=== PATIENT | male | born 1950 | race African-American/Black ===

== ENCOUNTER 2017-01-26 18:17 | Observation (INO) ==
[2017-01-26 19:41] LABS: Bilirubin,Urine Negative (Negative); Blood,Urine Trace-lysed (Negative); Clarity,Urine Clear (Clear); Color,Urine Yellow (Yellow); Glucose,Urine (UA) 500 mg/dL (Normal); Ketones,Urine Negative (Negative); Leukocyte Esterase,Urine Negative (Negative); Nitrite,Urine Negative (Negative); Protein,Urine 100 mg/dL (Neg-Trace); Urobilinogen,Urine Normal (Normal)
[2017-01-26 19:56] LABS: Bacteria,Urine None Seen per hpf (None-Few); Hyaline Casts,Urine None Seen per lpf (None-Few); RBC,Urine 0-3 per hpf (0-3); Squamous Epithelial Cell,Urine Few per lpf (None-Few)
[2017-01-26 20:17] LABS: Basophils % 0.3 %; Eosinophils # 0.1 K/mcL (0.0-0.6); Eosinophils % 1.4 %; Hematocrit 43.9 % (37.5-50.1); Hemoglobin 15.1 g/dL (12.9-16.9); Immature Granulocytes % 0.3 % (0-4); Lymphocytes % 22.9 %; Mean Corpuscular HGB Conc 34.4 g/dL (31.6-35.5); Mean Corpuscular Hemoglobin 28.9 pg (28.0-33.3); Mean Corpuscular Volume 84.1 fL (83.0-100.0); Mean Platelet Volume 9.9 fL (9.4-12.4); Monocytes # 0.6 K/mcL (0.0-1.3); Monocytes % 6.3 %; Platelet Count 245 K/mcL (140-400); Red Blood Count 5.22 M/mcL (4.19-5.50); Red Cell Distribution Width 12.3 % (11.5-14.5); Segmented Neutrophils % 68.8 %
[2017-01-26] MEDS ORDERED: 0.9 % Sodium Chloride 1,000 ML IVC ONE (20:18)
[2017-01-26] MEDS ORDERED: Ipratropium/Albuterol Neb 3 ML IH ONE (20:18)
[2017-01-26 20:28] LABS: BUN/Creatinine Ratio 11 (6-26); Blood Urea Nitrogen 13 mg/dL (8-26); Calcium 10.1 mg/dL (8.6-10.8); Carbon Dioxide 27 mEq/L (19-29); Chloride 99 mEq/L (98-109); Glucose 395 mg/dL (70-99); Osmolality,Calculated 299 (280-300); Potassium 3.9 mEq/L (3.5-4.5); Sodium 136 mEq/L (136-145); eGFR For African Americans > 60 (> 60); eGFR For Non-African Americans 60 (> 60)
[2017-01-26 21:07] LABS: Beta-Hydroxybutyric Acid 0.23 mmol/L (0.02-0.27)
[2017-01-26 21:14] LABS: Alanine Aminotransferase 24 Units/L (0-55); Albumin 3.8 g/dL (3.5-5.0); Albumin/Globulin Ratio 0.9 (1.1-2.2); Alkaline Phosphatase 112 Units/L (38-126); Aspartate Amino Transferase 14 Units/L (5-34); Bilirubin,Direct 0.1 mg/dL (0.0-0.5); Bilirubin,Indirect 0.2 mg/dL (0.0-1.2); Bilirubin,Total 0.3 mg/dL (0.2-1.2); Globulin 4.4 g/dL (2.4-3.5); Lipase 67 Units/L (8-78); Total Protein 8.2 g/dL (6.0-8.3)
--- NOTE | 2017-01-26 21:29 | Emergency Department Note ---
Disposition Clinical Impression: Hyperglycemia, Bronchitis, Elevated troponin Chest pain Qualifiers: Chest pain type: unspecified Qualified Code(s): R07.9 - Chest pain, unspecified Disposition: Admitted As Inpatient Condition: Good Time of Disposition: 22:08 General Adult HPI - General Chief complaint: ED Upper Respiratory Infection Stated complaint: JAYNA Time Seen by Provider: 01/26/17 19:34 Source: patient Mode of arrival: ambulatory Limitations: no limitations Nursing Notes Reviewed: Yes Vital Signs Reviewed: Yes - History of Present Illness HPI Narrative: Patient presents to the ED with the chief complaint of cough and hyperglycemia. Patient reports he has been battling a nonproductive cough for the last 2 weeks. He has also been having subjective fevers waking up at night profusely sweating. States that he is having some sharp chest pain that is retrosternal, intermittent, worse when coughing. Does have a history of one stent and last cardiac evaluation was several years ago. Also complaining of some achy epigastric abdominal pain, nausea, no vomiting. Does have a history of diabetes for the last 25 years with no history of DKA. States his blood sugars are always very well controlled. Reports that the last 3 days he has been unable to control his blood sugars and they have been in the 400s despite giving himself his normal amounts of insulin. He denies any difficulty urinating. Denies any pain or swelling in his legs. Pain Scale: 8 - Related Data Home Medications Medication Instructions Recorded Confirmed Allopurinol [Zyloprim] 300 mg PO DAILY 01/31/15 01/26/17 Amlodipine [Amlodipine Besylate] 10 mg PO DAILY 01/31/15 01/26/17 Aspirin 81 mg PO DAILY 01/31/15 01/26/17 Atorvastatin [Lipitor] 40 mg PO HS 01/31/15 01/26/17 Duloxetine [Cymbalta] 30 mg PO BID 01/31/15 01/26/17 Gabapentin [Neurontin] 300 mg PO TID 01/31/15 01/26/17 Insulin Glargine,Hum.rec.anlog 42 unit SQ HS 01/31/15 01/26/17 [Lantus Solostar] Isosorbide MONOnitrate (24 HR) 30 mg PO DAILY 01/31/15 01/26/17 [Imdur] Insulin ASPART [Novolog Flexpen] 0 unit SQ TIDWM 01/26/17 01/26/17 Lisinopril [Zestril] 40 mg PO DAILY 01/26/17 01/26/17 Metformin HCl [Glucophage Xr] 750 - 1,500 mg PO QPM 01/26/17 01/26/17 Metoprolol [Lopressor] 50 mg PO BID 01/26/17 01/26/17 Multivitamin [One Daily Essential] 1 each PO DAILY 01/26/17 01/26/17 OxyCODONE/APAP 5/325 [Percocet 1 tab PO QID PRN 01/26/17 01/26/17 5/325 MG] cloNIDine HCl [Clonidine HCl] 0.3 mg PO BID 01/26/17 01/26/17 Allergies Allergy/AdvReac Type Severity Reaction Status Date / Time morphine AdvReac Rash Verified 01/26/17 20:32 All systems ED: reviewed and negative except as stated. Constitutional: Reports: fever, chills Cardiovascular: Reports: chest pain Respiratory: Reports: cough, dyspnea Gastrointestinal: Reports: abdominal pain, nausea, vomiting Genitourinary: Denies: dysuria Musculoskeletal: Denies: back pain Neurological: Denies: headache Past Medical History - Past Medical History Attestation: Yes The following information was validated with the patient. Source: patient Medical history: Reports: asthma, diabetes, hyperlipidemia, hypertension Psychiatric history: Reports: no psych history - Social History Smoking Status: Never smoker Smokeless Tobacco Status: Yes Alcohol use: Reports: none Drug use: Reports: none Physical Exam - General Limitations: no limitations General appearance: alert, in no apparent distress - Head Head exam: atraumatic, normocephalic, normal inspection - Eye Eye exam: Present: normal appearance, PERRL, EOMI - ENT ENT exam: normal exam, normal oropharynx, mucous membranes moist - Neck Neck exam: Present: normal inspection, full ROM, trachea midline - Chest Chest inspection: Present: normal inspection, symmetric chest wall rise - Respiratory Respiratory exam: Present: wheezes (Left lung, does have history of asthma), other. Absent: normal lung sounds bilaterally - Cardiovascular Cardiovascular exam: Present: normal rhythm, tachycardia, normal heart sounds. Absent: regular rate - Abdominal Exam Abdominal exam: Present: soft, Non-Tender. Absent: tenderness, distention, guarding, rebound, rigidity - Extremities Exam Extremities exam: Present: normal inspection, full ROM. Absent: tenderness, pedal edema - Neurological Exam Neurological exam: Present: alert, oriented X3 - Psychiatric Psychiatric exam: Present: normal affect, normal mood - Skin Skin exam: Present: warm, dry, intact, normal color Course Course Narrative: 66-year-old male with history of coronary artery disease and diabetes presenting with chest pain, abdominal pain, nausea and cough. Will workup and likely admit. - Reevaluation(s) Reevaluation #1: Patient accepted for the hospitalist service for admission. He just the d- dimer is normal. Troponin is slightly elevated. EKG did not show any acute ischemic changes. We will admit for further workup and evaluation of this chest pain. Vital Signs Temperature 98.9 F 01/26/17 18:33 Pulse Rate 124 01/26/17 18:33 Respiratory Rate 22 01/26/17 18:33 Blood Pressure 173/131 01/26/17 18:33 O2 Sat by Pulse Oximetry 96 01/26/17 18:33 Temperature 98.2 F 01/26/17 23:38 Pulse Rate 95 01/26/17 23:38 Respiratory Rate 16 01/26/17 23:38 Blood Pressure 189/93 01/26/17 23:38 O2 Sat by Pulse Oximetry 96 01/26/17 23:38 Oxygen Delivery Oxygen Delivery Room Air Medical Decision Making - Medical Records Medical records reviewed: Yes I reviewed the patient's medical records. - Lab Data Lab results reviewed: Yes I reviewed the patient's lab results. Result diagrams: 01/26/17 20:00 01/26/17 20:00 Lab Results 01/26/17 01/26/17 01/26/17 Range/Units 18:25 18:30 20:00 WBC 8.7 (4.3-11.1) K/mcL RBC 5.22 (4.19-5.50) M/mcL Hgb 15.1 (12.9-16.9) g/dL Hct 43.9 (37.5-50.1) % MCV 84.1 (83.0-100.0) fL MCH 28.9 (28.0-33.3) pg MCHC 34.4 (31.6-35.5) g/dL RDW 12.3 (11.5-14.5) % Plt Count 245 (140-400) K/mcL MPV 9.9 (9.4-12.4) fL Immature Gran % 0.3 (0-4) % Seg Neutrophils % 68.8 % Lymphocytes % 22.9 % Monocytes % 6.3 % Eosinophils % 1.4 % Basophils % 0.3 % Neutrophils # 6.0 (1.6-8.9) K/mcL Lymphocytes # 2.0 (0.6-4.6) K/mcL Monocytes # 0.6 (0.0-1.3) K/mcL Eosinophils # 0.1 (0.0-0.6) K/mcL Basophils # 0.0 (0.0-0.2) K/mcL D-Dimer (0-500) ng/mLFEU Sodium (136-145) mEq/L Potassium (3.5-4.5) mEq/L Chloride (98-109) mEq/L Carbon Dioxide (19-29) mEq/L BUN (8-26) mg/dL Creatinine (0.72-1.25) mg/dL Est GFR ( Amer) (> 60) Est GFR (Non-Af Amer) (> 60) BUN/Creatinine Ratio (6-26) Glucose (70-99) mg/dL POC Glucose 373 H (58-89) Calculated Osmolality (280-300) Calcium (8.6-10.8) mg/dL Total Bilirubin (0.2-1.2) mg/dL Direct Bilirubin (0.0-0.5) mg/dL Indirect Bilirubin (0.0-1.2) mg/dL AST (5-34) Units/L ALT (0-55) Units/L Alkaline Phosphatase (38-126) Units/L Troponin I (0-0.03) ng/mL B-Natriuretic Peptide (0-100) pg/mL Serum Total Protein (6.0-8.3) g/dL Albumin (3.5-5.0) g/dL Globulin (2.4-3.5) g/dL Albumin/Globulin Ratio (1.1-2.2) Lipase (8-78) Units/L Beta-Hydroxybutyric Acd (0.02-0.27) mmol/L Ur Specimen Adequacy See below A Urine Color Yellow (Yellow) Urine Clarity Clear (Clear) Urine pH 5.0 (5.0-8.0) pH Units Ur Specific [place] 1.020 (1.010-1.025) Urine Protein 100 H (Neg-Trace) mg/dL Urine Glucose (UA) 500 H (Normal) mg/dL Urine Ketones Negative (Negative) mg/dL Urine Blood Trace-lysed H (Negative) Urine Nitrite Negative (Negative) Urine Bilirubin Negative (Negative) Urine Urobilinogen Normal (Normal) mg/dL Ur Leukocyte Esterase Negative (Negative) Urine Microscopic RBC 0-3 (0-3) per hpf Urine Microscopic WBC 3-5 H (0-3) per hpf Ur Squamous Epith Cells Few (None-Few) per lpf Urine Bacteria None Seen (None-Few) per hpf Hyaline Casts None Seen (None-Few) per lpf 01/26/17 01/26/17 01/26/17 Range/Units 20:00 20:00 20:00 WBC (4.3-11.1) K/mcL RBC (4.19-5.50) M/mcL Hgb (12.9-16.9) g/dL Hct (37.5-50.1) % MCV (83.0-100.0) fL MCH (28.0-33.3) pg MCHC (31.6-35.5) g/dL RDW (11.5-14.5) % Plt Count (140-400) K/mcL MPV (9.4-12.4) fL Immature Gran % (0-4) % Seg Neutrophils % % Lymphocytes % % Monocytes % % Eosinophils % % Basophils % % Neutrophils # (1.6-8.9) K/mcL Lymphocytes # (0.6-4.6) K/mcL Monocytes # (0.0-1.3) K/mcL Eosinophils # (0.0-0.6) K/mcL Basophils # (0.0-0.2) K/mcL D-Dimer (0-500) ng/mLFEU Sodium 136 (136-145) mEq/L Potassium 3.9 (3.5-4.5) mEq/L Chloride 99 (98-109) mEq/L Carbon Dioxide 27 (19-29) mEq/L BUN 13 (8-26) mg/dL Creatinine 1.22 (0.72-1.25) mg/dL Est GFR ( Amer) > 60 (> 60) Est GFR (Non-Af Amer) 60 (> 60) BUN/Creatinine Ratio 11 (6-26) Glucose 395 H (70-99) mg/dL POC Glucose (58-89) Calculated Osmolality 299 (280-300) Calcium 10.1 (8.6-10.8) mg/dL Total Bilirubin 0.3 (0.2-1.2) mg/dL Direct Bilirubin 0.1 (0.0-0.5) mg/dL Indirect Bilirubin 0.2 (0.0-1.2) mg/dL AST 14 (5-34) Units/L ALT 24 (0-55) Units/L Alkaline Phosphatase 112 (38-126) Units/L Troponin I 0.05 H* (0-0.03) ng/mL B-Natriuretic Peptide 71 (0-100) pg/mL Serum Total Protein 8.2 (6.0-8.3) g/dL Albumin 3.8 (3.5-5.0) g/dL Globulin 4.4 H (2.4-3.5) g/dL Albumin/Globulin Ratio 0.9 L (1.1-2.2) Lipase 67 (8-78) Units/L Beta-Hydroxybutyric Acd 0.23 (0.02-0.27) mmol/L Ur Specimen Adequacy Urine Color (Yellow) Urine Clarity (Clear) Urine pH (5.0-8.0) pH Units Ur Specific [place] (1.010-1.025) Urine Protein (Neg-Trace) mg/dL Urine Glucose (UA) (Normal) mg/dL Urine Ketones (Negative) mg/dL Urine Blood (Negative) Urine Nitrite (Negative) Urine Bilirubin (Negative) Urine Urobilinogen (Normal) mg/dL Ur Leukocyte Esterase (Negative) Urine Microscopic RBC (0-3) per hpf Urine Microscopic WBC (0-3) per hpf Ur Squamous Epith Cells (None-Few) per lpf Urine Bacteria (None-Few) per hpf Hyaline Casts (None-Few) per lpf 01/26/17 Range/Units 20:06 WBC (4.3-11.1) K/mcL RBC (4.19-5.50) M/mcL Hgb (12.9-16.9) g/dL Hct (37.5-50.1) % MCV (83.0-100.0) fL MCH (28.0-33.3) pg MCHC (31.6-35.5) g/dL RDW (11.5-14.5) % Plt Count (140-400) K/mcL MPV (9.4-12.4) fL Immature Gran % (0-4) % Seg Neutrophils % % Lymphocytes % % Monocytes % % Eosinophils % % Basophils % % Neutrophils # (1.6-8.9) K/mcL Lymphocytes # (0.6-4.6) K/mcL Monocytes # (0.0-1.3) K/mcL Eosinophils # (0.0-0.6) K/mcL Basophils # (0.0-0.2) K/mcL D-Dimer 517 H (0-500) ng/mLFEU Sodium (136-145) mEq/L Potassium (3.5-4.5) mEq/L Chloride (98-109) mEq/L Carbon Dioxide (19-29) mEq/L BUN (8-26) mg/dL Creatinine (0.72-1.25) mg/dL Est GFR ( Amer) (> 60) Est GFR (Non-Af Amer) (> 60) BUN/Creatinine Ratio (6-26) Glucose (70-99) mg/dL POC Glucose (58-89) Calculated Osmolality (280-300) Calcium (8.6-10.8) mg/dL Total Bilirubin (0.2-1.2) mg/dL Direct Bilirubin (0.0-0.5) mg/dL Indirect Bilirubin (0.0-1.2) mg/dL AST (5-34) Units/L ALT (0-55) Units/L Alkaline Phosphatase (38-126) Units/L Troponin I (0-0.03) ng/mL B-Natriuretic Peptide (0-100) pg/mL Serum Total Protein (6.0-8.3) g/dL Albumin (3.5-5.0) g/dL Globulin (2.4-3.5) g/dL Albumin/Globulin Ratio (1.1-2.2) Lipase (8-78) Units/L Beta-Hydroxybutyric Acd (0.02-0.27) mmol/L Ur Specimen Adequacy Urine Color (Yellow) Urine Clarity (Clear) Urine pH (5.0-8.0) pH Units Ur Specific [place] (1.010-1.025) Urine Protein (Neg-Trace) mg/dL Urine Glucose (UA) (Normal) mg/dL Urine Ketones (Negative) mg/dL Urine Blood (Negative) Urine Nitrite (Negative) Urine Bilirubin (Negative) Urine Urobilinogen (Normal) mg/dL Ur Leukocyte Esterase (Negative) Urine Microscopic RBC (0-3) per hpf Urine Microscopic WBC (0-3) per hpf Ur Squamous Epith Cells (None-Few) per lpf Urine Bacteria (None-Few) per hpf Hyaline Casts (None-Few) per lpf - Radiology Data Radiology results reviewed: Yes I reviewed the patient's radiology results. Chest X-Ray 01/26/17 19:35 IMPRESSION: No acute process. D/ / Wolfgang Leiva MD / Wolfgang Leiva MD Interpreting Provider: Wolfgang Leiva MD - EKG Data EKG #1 EKG attestation: Yes I reviewed and interpreted this EKG. EKG results narrative: Sinus tach, rate 123, CA interval 146, , QRS 89, QTC 379, normal axis, nonspecific ST-T wave changes, no acute ischemic changes Attestation Statement - Attestation Attestation: I, Agustin Yañez, examined this patient and my medical decision-making was reviewed with the DOLL EYE SETTER/PA/Advanced Practice Nurse/Resident Physician. I agree with the documented findings, disposition and treatment plan as described except to the extent set forth below. 66-year-old male presents emergency department with increasing difficulty in breathing. Patient states his symptoms have been present for the past 4 days. Patient states symptoms started initially with a profuse amount of sweating. Patient states he has chest pain that is in the center of his chest which is worse with coughing and movement. Patient does report a productive cough of white sputum. Patient has a history of cardiac disease with a cardiac stent placed 12 years ago. Last stress test 3.5 years ago. Denies associated nausea , vomiting, palpitations, syncope. Patient had an elevated troponin on laboratory testing. Initial EKG did not show evidence of STEMI. Patient felt improved markedly after administration of nebulizer in the emergency department. Symptoms are likely secondary to acute bronchitis however patient does have elevation of his troponin and a concerning history. Patient will be admitted to the hospital for further care and evaluation.
[2017-01-26] MEDS ORDERED: Aspirin 325 MG TABLET PO ONE (22:08)
--- NOTE | 2017-01-27 03:39 | Internal Med History&Physical ---
Date of Encounter: 01/27/17 Time of Encounter: 03:36 Assessment and Plan (1) Acute bronchitis Current visit: Yes Status: Acute Start the patient on oral steroids, nebulizer treatment, azithromycin. Check sputum culture. No evidence of pneumonia on chest x-ray Qualifiers: Qualified Code(s): J20.9 - Acute bronchitis, unspecified (2) Hyperglycemia Current visit: Yes Status: Acute Continue home regimen in the formal plaintiffs 42 units in addition to 7 units of NovoLog before meals in addition to sliding scale insulin. Expected worsening of diabetes because of steroid therapy. Check hemoglobin A-1 C. (3) Elevated troponin Current visit: Yes Status: Acute Likely due to NSTEMI type 2 due to demand ischemia. trend troponin Internal Medicine - H&P: HPI Chief complaint: sob History of present illness: Mr. Zamora is a 66 year old male with a past medical history of asthma, exposure to secondhand smoke through his presents to the emergency room today with a complaining of shortness of breath. For the past 2 weeks patient has been more short of breath than usual with him creased wheezing has been using his nebulizer treatment for times a day. He has been having productive cough of clear sputum. He has been having intermittent subjective fevers and chills. He also has been experiencing retrosternal chest pain which she feels equal chest congestion. Patient used course of antibiotics he had at home for his teeth. He has not noticed any improvement. He denies any lower extremity swelling orthopnea paroxysmal nocturnal dyspnea. Past Med Surg Social Fam HX - Past Medical History Medical history: asthma, diabetes, hyperlipidemia, hypertension Psychiatric history: no psych history - Past Surgical History Surgical History: knee replacement - Social History Smoking Status: Never smoker Smokeless Tobacco Status: Yes Alcohol use: none Drug use: none - Family History Mother Living Status: Hx Family Cardiac Disorders: Yes Internal Medicine - H&P: Meds Allopurinol [Zyloprim] 300 mg PO DAILY 01/31/15 [History] Amlodipine [Amlodipine Besylate] 10 mg PO DAILY 01/31/15 [History] Aspirin 81 mg PO DAILY 01/31/15 [History] Atorvastatin [Lipitor] 40 mg PO HS 01/31/15 [History] Duloxetine [Cymbalta] 30 mg PO BID 01/31/15 [History] Gabapentin [Neurontin] 300 mg PO TID 01/31/15 [History] Insulin Glargine,Hum.rec.anlog [Lantus Solostar] 42 unit SQ HS 01/31/15 [History ] Isosorbide MONOnitrate (24 HR) [Imdur] 30 mg PO DAILY 01/31/15 [History] Insulin ASPART [Novolog Flexpen] 0 unit SQ TIDWM 01/26/17 [History] Lisinopril [Zestril] 40 mg PO DAILY 01/26/17 [History] Metformin HCl [Glucophage Xr] 750 - 1,500 mg PO QPM 01/26/17 [History] Metoprolol [Lopressor] 50 mg PO BID 01/26/17 [History] Multivitamin [One Daily Essential] 1 each PO DAILY 01/26/17 [History] OxyCODONE/APAP 5/325 [Percocet 5/325 MG] 1 tab PO QID PRN 01/26/17 [History] cloNIDine HCl [Clonidine HCl] 0.3 mg PO BID 01/26/17 [History] 3 Allergy/AdvReac Type Severity Reaction Status Date / Time morphine AdvReac Rash Verified 01/26/17 20:32 All Systems PM: A 10-system review of systems was performed and is negative for pertinent findings except as documented above in the HPI. Review of systems: 10 point review of systems is negative except for HPI - Constitutional Vitals: Temp Pulse Resp BP Pulse Ox 98.2 F 95 16 189/93 96 01/26/17 23:38 01/26/17 23:38 01/26/17 23:38 01/26/17 23:38 01/26/17 23:38 Exam: Gen.: patient is alert oriented times 3 not in distress. Cardiac: normal S1 S2 no additional sounds or murmurs chest: slightly dimished air entry, expiratory wheeze abdomen: soft nontender nondistended normal bowel sounds neuro: no focal deficit Internal Med - H&P Results - Labs CBC & Chem 7: 01/26/17 20:00 01/26/17 20:00
[2017-01-27] MEDS: Gabapentin 300 MG CAPSULE PO SCH ×4 (04:10→20:40)
[2017-01-27] MEDS: *HR* OxyCODONE/APAP 5/325 TABLET PO PRN ×4 (04:10→22:14)
[2017-01-27] MEDS: Insulin DETEMIR 100 UNIT/ML X5UNITS SQ SCH ×2 (04:21→20:40)
[2017-01-27] MEDS: Ipratropium/Albuterol Neb 3 ML IH SCH ×4 (04:36→22:54)
[2017-01-27] MEDS: Azithromycin 500 MG in D5% in Water 250 ML IVPB SCH (04:48)
[2017-01-27] MEDS: Lisinopril 20 MG TABLET PO SCH (09:41)
[2017-01-27] MEDS: cloNIDine HCl 0.1 MG TABLET PO SCH ×2 (09:41→20:40)
[2017-01-27] MEDS: Isosorbide MONOnitrate (24 HR) 30 MG TAB.ER.24H PO SCH (09:42)
[2017-01-27] MEDS: amLODIPine 5 MG TABLET PO SCH (09:42)
[2017-01-27] MEDS: predniSONE 20 MG TABLET PO SCH (09:42)
[2017-01-27] MEDS: Aspirin 81 MG TAB.CHEW PO SCH (09:42)
[2017-01-27] MEDS: Insulin LISPRO 300 UNITS/3 ML VIAL SQ SCH ×7 (09:43→22:16)
--- NOTE | 2017-01-27 12:35 | Electrocardiograph Report ---
[place] [id number] Test Date: 2017-01-26 Pat Name: Ashok Zamora Department: 104 Room: 3B Gender: M [employer]: BILL : 1950 Requested By: Katya Yañez Order Number: [id number] Reading MD: Francoise Rich Measurements Intervals [place] Rate: 123 P: 59 WV: 146 QRS: 47 QRSD: 89 T: 56 QT: 306 QTc: 379 Interpretive Statements SINUS TACHYCARDIA NONSPECIFIC ST & T-WAVE ABNORMALITY Electronically Signed On 01-27-2017 12:34:01 EDT by Francoise Rich
[2017-01-28] MEDS: Azithromycin 500 MG in D5% in Water 250 ML IVPB SCH (03:40)
[2017-01-28] MEDS: Ipratropium/Albuterol Neb 3 ML IH SCH ×2 (03:49→10:44)
[2017-01-28 05:27] LABS: Hemoglobin 12.2 g/dL (12.9-16.9); Mean Corpuscular HGB Conc 33.9 g/dL (31.6-35.5); Mean Corpuscular Hemoglobin 28.9 pg (28.0-33.3); Mean Corpuscular Volume 85.3 fL (83.0-100.0); Mean Platelet Volume 10.5 fL (9.4-12.4); Platelet Count 198 K/mcL (140-400); Red Blood Count 4.22 M/mcL (4.19-5.50); Red Cell Distribution Width 12.4 % (11.5-14.5)
[2017-01-28] MEDS: *HR* OxyCODONE/APAP 5/325 TABLET PO PRN ×2 (05:36→13:02)
[2017-01-28] MEDS ORDERED: Regadenoson 0.4 MG/5 ML SYRINGE IVP ONE (06:05)
[2017-01-28] MEDS: Insulin LISPRO 300 UNITS/3 ML VIAL SQ SCH ×4 (10:55→13:02)
[2017-01-28 13:01] VITALS: BP 164/82
[2017-01-28] MEDS: Lisinopril 20 MG TABLET PO SCH (13:01)
[2017-01-28] MEDS: cloNIDine HCl 0.1 MG TABLET PO SCH (13:01)
[2017-01-28] MEDS: predniSONE 20 MG TABLET PO SCH (13:01)
[2017-01-28] MEDS: Gabapentin 300 MG CAPSULE PO SCH (13:01)
[2017-01-28] MEDS: amLODIPine 5 MG TABLET PO SCH (13:01)
[2017-01-28] MEDS: Aspirin 81 MG TAB.CHEW PO SCH (13:01)
[2017-01-28] MEDS: Isosorbide MONOnitrate (24 HR) 30 MG TAB.ER.24H PO SCH (13:08)
--- NOTE | 2017-01-28 14:08 | Discharge Summary ---
Date of Encounter: 01/28/17 Time of Encounter: 14:05 - Discharge Diagnosis (1) Acute bronchitis Priority: Primary Status: Acute Comments: Ashok Zamora is a 66-year-old male with past medical history diabetes, hypertension, lumbar stenosis and gout who presented to [facility] on 01/27/2017 with complaints of shortness of breath and chest pain. He was placed in observation status for further workup and treatment. He was found to have suspected bronchitis and was started on IV ATB. He underwent a stress test and echocardiogram O's which were unremarkable. He was discharged home in stable condition with outpatient follow-up. 1. Acute Bronchitis: Presented with worsening shortness of breath for 2 weeks prior to presentation. Self medicated with ATBs he had at home with no improvement in symptoms. IV azithromycin and prednisone started on arrival. CXR nonacute. CTA Chest with right lower lobe micronodules concerning for infectious bronchiolitis. Afebrile, no elevated WBC. With scattered wheezing on exam. Discharge home with Z-Heri, steroid burst (will have received total of 5 days steroid burst). Respiratory PCR pending at time of discharge (patient did not want ot stay inpatoent). [place] follow-up with PCP within one week 2. Elevated troponin: troponin peaked at 0.05. No known CAD, no previous ischemic evaluation. TTE with EF 60% and with mild diastolic dysfunction. Stress test negative for ischemia or infarct. Elevated troponin likely due to NSTEMI type 2 due to demand ischemia. Cont home ASA, statin. Can follow up outpatient with cardiology PRN 3. Diabetes: per hx. Blood sugar elevated secondary to steroids. Continue home diabetes regimen. Recommend follow-up with PCP in one week 4. Hypertension: per hx. BP variable but acceptable. Cont home BP medication regimen. Recommend follow-up with PCP in one week for BP recheck 5. Lumbar stenosis: per hx. Cont home medication regimen. Qualifiers: Qualified Code(s): J20.9 - Acute bronchitis, unspecified (2) Diabetes Priority: Primary Status: Acute Qualifiers: Diabetes mellitus type: type 2 Diabetes mellitus complication status: with hyperglycemia Diabetes mellitus [place] [employer] insulin use: with nursing home use Qualified Code(s): E11.65 - Type 2 diabetes mellitus with hyperglycemia; Z79.4 - superintendent container terminal (current) use of insulin; Z79.4 - superintendent container terminal (current) use of insulin ; Z79.4 - superintendent container terminal (current) use of insulin; Z79.4 - half-way (current) use of insulin (3) Essential hypertension Priority: Primary Status: Acute (4) Elevated troponin Priority: Primary Status: Acute (5) Lumbar stenosis Priority: Primary Status: Chronic Qualifiers: Neurogenic claudication status: without neurogenic claudication Qualified Code(s): M48.061 - Spinal stenosis, lumbar region without neurogenic claudication - Discharge Medications Prescriptions: Azithromycin [Azithromycin 6-Tab Pack] 250 mg PO PER PKG DI #6 tab predniSONE [PredniSONE] 40 mg PO DAILY #3 tablet Home Medications: Allopurinol [Zyloprim] 300 mg PO DAILY 01/31/15 [History] Amlodipine [Amlodipine Besylate] 10 mg PO DAILY 01/31/15 [History] Aspirin 81 mg PO DAILY 01/31/15 [History] Atorvastatin [Lipitor] 40 mg PO HS 01/31/15 [History] Duloxetine [Cymbalta] 30 mg PO BID 01/31/15 [History] Gabapentin [Neurontin] 300 mg PO TID 01/31/15 [History] Insulin Glargine,Hum.rec.anlog [Lantus Solostar] 42 unit SQ HS 01/31/15 [History ] Isosorbide MONOnitrate (24 HR) [Imdur] 30 mg PO DAILY 01/31/15 [History] Insulin ASPART [Novolog Flexpen] 0 unit SQ TIDWM 01/26/17 [History] Lisinopril [Zestril] 40 mg PO DAILY 01/26/17 [History] Metformin HCl [Glucophage Xr] 750 - 1,500 mg PO QPM 01/26/17 [History] Metoprolol [Lopressor] 50 mg PO BID 01/26/17 [History] Multivitamin [One Daily Essential] 1 each PO DAILY 01/26/17 [History] OxyCODONE/APAP 5/325 [Percocet 5/325 MG] 1 tab PO QID PRN 01/26/17 [History] cloNIDine HCl [Clonidine HCl] 0.3 mg PO BID 01/26/17 [History] Azithromycin [Azithromycin 6-Tab Pack] 250 mg PO PER PKG DI #6 tab 01/28/17 [Rx] predniSONE [PredniSONE] 40 mg PO DAILY #3 tablet 01/28/17 [Rx] Allergies/Adverse Reactions: 3 Allergy/AdvReac Type Severity Reaction Status Date / Time morphine AdvReac Rash Verified 01/26/17 20:32 Procedures/tests Complete & Pending: Procedures Performed prior 72 hours Category Date Time Status CTA chest [CT angio chest] [CT] Routine Cat Scan 01/27/17 11:00 Completed NM bjorn perf SPECT multi [NM] Routine Exams 01/27/17 17:01 Taken EV echocardiogram Routine Y 01/27/17 17:00 Completed SP pharm nuclear stress Routine Y 01/28/17 07:30 Completed Date of admission: 01/26/17 22:22 Primary care physician: Hung Zamora MD Discharging clinician: Lana Cohen Anticipated date of discharge: 01/28/17 - Patient Status Disposition: Home, Self-Care Condition: Good Functional capacity at discharge: independent ambulation Overall status at discharge: patient is progressing back to baseline - Discharge Instructions Instructions: Diabetes Mellitus Type 2 in Adults (DC), Acute Bronchitis (DC) Follow Up With: Hung Zamora MD [Primary Care Provider] - Additional Instructions: Please call make an appointment with your primary care doctor within 1 week of discharge - Diet and Activity Activity: resume usual activities as tolerated Diet: diabetic diet, low fat, low cholesterol Interval History: Seen and examined at bedside. Patient says he still feels better and would like to go home. Still with some shortness of breath but significantly improved from presentation. Denies chest pain. Hospital course: See assessment and plan for hospital course - Time Spent with Patient Total time spent providing and/or coordinating discharge services: - Constitutional Vitals: Temp Pulse Resp BP Pulse Ox 98.1 F 101 16 164/82 97 01/28/17 12:57 01/28/17 12:57 01/28/17 12:57 01/28/17 12:57 01/28/17 12:57 General appearance: Present: A&O X 3, pleasant, no acute distress - Head Head exam: Present: atraumatic, normocephalic - Eye Eye exam: Present: PERRL, conjuntiva pink, sclera anicteric Pupils: Present: PERRL - Neck Neck exam general surgery: Present: supple, trachea midline. Absent: lymphadenopathy - Respiratory Respiratory exam: Present: CTAB. Absent: accessory muscle use, rales, rhonchi, wheezes - Cardiovascular Cardiovascular exam: Present: RRR, +S1, +S2. Absent: diastolic murmur, gallop, rubs, systolic murmur - GI/Abdominal GI/Abdominal exam: Present: normal bowel sounds, soft, no peritoneal signs. Absent: distended, tenderness - Extremities Exam Extremities exam: Present: warm, radial pulses palpable and symmetrical. Absent : calf tenderness, cyanotic, pedal edema - Neurological Exam Neurological exam: Present: CN II-XII intact, oriented X3, no focal deficits. Absent: pronater drift, facial droop, speech deficit - Skin Skin exam: Present: dry, intact
[2017-01-28 16:14] LABS: Adenovirus Not Detected (Not Detect); Bordetella Pertussis Not Detected (Not Detect); Chlamydophila pneumoniae Not Detected (Not Detect); Coronavirus 229E Not Detected (Not Detect); Coronavirus HKU1 Not Detected (Not Detect); Coronavirus NL63 Not Detected (Not Detect); Coronavirus OC43 Not Detected (Not Detect); Human Metapneumovirus Not Detected (Not Detect); Human Rhinovirus/Enterovirus Not Detected (Not Detect); Influenza A Subtype 2009 H1 Not Detected (Not Detect); Influenza A Untypeable Not Detected (Not Detect); Influenza B Not Detected (Not Detect); Mycoplasma pneumoniae Not Detected (Not Detect); Parainfluenza Virus 1 Not Detected (Not Detect); Parainfluenza Virus 2 Not Detected (Not Detect); Parainfluenza Virus 3 Not Detected (Not Detect); Parainfluenza Virus 4 Not Detected (Not Detect); Respiratory Syncytial Virus Not Detected (Not Detect)
[2017-01-29 17:44] LABS: CK-BB (CK isoenzymes) 0 % (0-0); CK-MB (CK isoenzymes) 0 % (0-4); CK-MM (CK-isoenzymes) 100 % (96-100)
[2017-01-29 17:44] LABS: CK-BB (CK isoenzymes) 0 % (0-0); CK-MB (CK isoenzymes) 0 % (0-4); CK-MM (CK-isoenzymes) 100 % (96-100)
[2017-01-30 07:10] LABS: CK Total (Ck Isoenzymes) 90 U/L (20-200)
[2017-01-30 07:10] LABS: CK Total (Ck Isoenzymes) 87 U/L (20-200)
== END 2017-01-28 15:15 | disposition home or self-care (01) ==
LOC: 3BNU 18:17 → EMEROO 18:17 → 3BNU 23:12
PROVIDERS: ADMIT Internal Medicine; ATTEND Registered Nurse

== ENCOUNTER 2019-01-20 05:54 | Inpatient (IN) ==
[2019-01-20] MEDS ORDERED: Nitroglycerin 25 MG/250 ML INFUS..BTL IVC ONE (06:08)
[2019-01-20 06:17] LABS: Hemoglobin 12.9 g/dL (12.9-16.9); Mean Corpuscular HGB Conc 31.5 g/dL (31.6-35.5); Mean Corpuscular Hemoglobin 29.3 pg (28.0-33.3); Mean Platelet Volume 10.5 fL (9.4-12.4); Platelet Count 274 K/mcL (140-400); Red Blood Count 4.41 M/mcL (4.19-5.50); Red Cell Distribution Width 13.5 % (11.5-14.5); White Blood Count 18.4 K/mcL (4.3-11.1)
[2019-01-20] MEDS ORDERED: Furosemide 40 MG/4 ML VIAL IVP ONE (06:18)
[2019-01-20] MEDS ORDERED: methylPREDNISolone 125 MG/2 ML VIAL IVP ONE (06:18)
[2019-01-20] MEDS: Nitroglycerin 25 MG/250 ML INFUS..BTL IVC SCH ×2 (06:21→12:08)
[2019-01-20 06:24] LABS: Prothrombin Time 11.7 Seconds (9.4-12.1)
[2019-01-20 06:36] LABS: BUN/Creatinine Ratio 13 (6-26); Blood Urea Nitrogen 18 mg/dL (8-23); Calcium 9.1 mg/dL (8.6-10.3); Carbon Dioxide 23 mEq/L (23-29); Chloride 99 mEq/L (98-107); Glucose 321 mg/dL (70-105); Osmolality,Calculated 296 (280-300); Potassium 3.8 mEq/L (3.5-5.1); Sodium 136 mEq/L (136-145); Troponin I 0.03 ng/mL (< 0.04); eGFR For African Americans > 60 (> 60); eGFR For Non-African Americans 53 (> 60)
[2019-01-20] MEDS ORDERED: *HR* Rocuronium Bromide 50 MG/5 ML VIAL IVP ONE (06:48)
[2019-01-20] MEDS ORDERED: *HR* Etomidate 20 MG/10 ML AMPUL IVP ONE ×2 (06:48→09:10)
[2019-01-20] MEDS ORDERED: cefTRIAXone 1,000 MG in Water for inj. (sterile) 10 ML IVP ONE (07:08)
[2019-01-20] MEDS ORDERED: Azithromycin 500 MG in 0.9 % Sodium Chloride 250 ML IVPB ONE ×2 (07:08→07:27)
[2019-01-20] MEDS ORDERED: Naloxone 0.4 MG/ML INJ IVP PRN (07:27)
[2019-01-20] MEDS ORDERED: Artificial Tears SOLN 15 ML BOTTLE BOTH EYES PRN (07:34)
[2019-01-20] MEDS ORDERED: D5% in Water 1,000 ML IVC PRN (07:39)
[2019-01-20] MEDS ORDERED: *HR* Dextrose 50 % in Water (Syg) 50 ML SYRINGE IVP PRN (07:39)
[2019-01-20] MEDS ORDERED: Dextrose Gel 15 GM/37.5 ML TUBE PO PRN ×2 (07:39)
[2019-01-20] MEDS ORDERED: Albuterol 2.5 MG/3 ML NEBULIZER IH PRN (07:40)
[2019-01-20 08:28] LABS: ABG Base Excess -4 mEq/L (-2 to 3); ABG HCO3 28 mEq/L (21-27); ABG Oxygen Saturation 90 % (95-98); ABG PCO2 90 mmHg (35-45); ABG PO2 84 mmHg (85-104); ABG TCO2 30 mEq/L (20-26); Blood Gas Modality ASSIST CONTROL; Blood Gas VT 450 cc
[2019-01-20] MEDS ORDERED: amLODIPine 5 MG TABLET PO SCH (09:00)
[2019-01-20] MEDS ORDERED: *HR* Rocuronium Bromide 100 MG/10 ML VIAL IVC ONE (09:10)
[2019-01-20 10:08] LABS: ABG Base Excess -2 mEq/L (-2 to 3); ABG HCO3 26 mEq/L (21-27); ABG Oxygen Saturation 95 % (95-98); ABG PCO2 57 mmHg (35-45); ABG PH 7.27 pH Units (7.32-7.45); ABG PO2 88 mmHg (85-104); ABG TCO2 28 mEq/L (20-26); Blood Gas Modality AF; Blood Gas VT 500 cc
[2019-01-20] MEDS: FentaNYL (PF) 1,000 MCG in 0.9 % Sodium Chloride 80 ML IVC SCH (11:34)
[2019-01-20] MEDS: Aspirin 81 MG TAB.CHEW PO SCH (11:35)
[2019-01-20] MEDS: Chlorhexidine Rinse 15 ML MOUTHWASH MM SCH ×2 (11:35→20:33)
[2019-01-20] MEDS: Pantoprazole 40 MG VIAL IVP SCH (11:35)
[2019-01-20] MEDS: cefTRIAXone 2,000 MG in Water for inj. (sterile) 20 ML IVP SCH (11:35)
[2019-01-20] MEDS: cloNIDine HCl 0.1 MG TABLET PO SCH ×2 (11:36→20:34)
[2019-01-20] MEDS: Gabapentin 300 MG CAPSULE PO SCH ×3 (11:36→20:34)
[2019-01-20] MEDS: Ipratropium/Albuterol Neb 3 ML IH SCH ×3 (11:39→23:04)
[2019-01-20] MEDS: Insulin LISPRO 300 UNITS/3 ML VIAL SQ SCH ×2 (11:59→18:13)
[2019-01-20] MEDS: Artificial Tears SOLN 15 ML BOTTLE BOTH EYES SCH ×4 (12:01→20:09)
[2019-01-20] MEDS: MethylPREDNISolone 40 MG/ML VIAL IVP SCH ×2 (12:27→18:14)
[2019-01-20] MEDS: *HR* Heparin 5,000 UNIT/ML VIAL SQ SCH ×2 (14:10→20:34)
[2019-01-20 17:20] LABS: BUN/Creatinine Ratio 18 (6-26); Blood Urea Nitrogen 21 mg/dL (8-23); Carbon Dioxide 26 mEq/L (23-29); Chloride 102 mEq/L (98-107); Glucose 141 mg/dL (70-105); Osmolality,Calculated 293 (280-300); Potassium 4.1 mEq/L (3.5-5.1); Sodium 139 mEq/L (136-145); eGFR For African Americans > 60 (> 60); eGFR For Non-African Americans > 60 (> 60)
[2019-01-21] MEDS: Artificial Tears SOLN 15 ML BOTTLE BOTH EYES SCH ×5 (00:20→18:10)
[2019-01-21] MEDS: Insulin LISPRO 300 UNITS/3 ML VIAL SQ SCH ×4 (00:20→18:07)
[2019-01-21] MEDS: MethylPREDNISolone 40 MG/ML VIAL IVP SCH ×2 (00:24→07:45)
[2019-01-21] MEDS: Ipratropium/Albuterol Neb 3 ML IH SCH ×4 (04:25→22:35)
[2019-01-21] MEDS: FentaNYL (PF) 1,000 MCG in 0.9 % Sodium Chloride 80 ML IVC SCH (04:51)
[2019-01-21 05:17] LABS: ABG Base Excess 3 mEq/L (-2 to 3); ABG HCO3 27 mEq/L (21-27); ABG Oxygen Saturation 99 % (95-98); ABG PCO2 40 mmHg (35-45); ABG PH 7.44 pH Units (7.32-7.45); ABG PO2 113 mmHg (85-104); ABG TCO2 28 mEq/L (20-26); Blood Gas Modality ASSIST CONTROL; Blood Gas VT 500 cc
[2019-01-21] MEDS: *HR* Heparin 5,000 UNIT/ML VIAL SQ SCH ×3 (05:30→20:26)
[2019-01-21 06:15] LABS: Hematocrit 32.9 % (37.5-50.1); Hemoglobin 10.9 g/dL (12.9-16.9); Immature Granulocytes % 0.5 % (0-4); Lymphocytes # 0.7 K/mcL (0.6-4.6); Lymphocytes % 6.6 %; Mean Corpuscular HGB Conc 33.1 g/dL (31.6-35.5); Mean Corpuscular Hemoglobin 29.1 pg (28.0-33.3); Mean Platelet Volume 10.8 fL (9.4-12.4); Monocytes # 0.2 K/mcL (0.0-1.3); Neutrophils # 9.3 K/mcL (1.6-8.9); Platelet Count 173 K/mcL (140-400); Red Blood Count 3.74 M/mcL (4.19-5.50); Red Cell Distribution Width 13.5 % (11.5-14.5); Segmented Neutrophils % 90.9 %; White Blood Count 10.2 K/mcL (4.3-11.1)
[2019-01-21 06:35] LABS: BUN/Creatinine Ratio 21 (6-26); Blood Urea Nitrogen 26 mg/dL (8-23); Calcium 9.2 mg/dL (8.6-10.3); Carbon Dioxide 24 mEq/L (23-29); Chloride 101 mEq/L (98-107); Glucose 182 mg/dL (70-105); Magnesium 1.8 mg/dL (1.6-2.6); Osmolality,Calculated 295 (280-300); Potassium 4.5 mEq/L (3.5-5.1); Sodium 138 mEq/L (136-145); eGFR For African Americans > 60 (> 60); eGFR For Non-African Americans 60 (> 60)
[2019-01-21] MEDS: cefTRIAXone 2,000 MG in Water for inj. (sterile) 20 ML IVP SCH (07:45)
[2019-01-21] MEDS: Aspirin 81 MG TAB.CHEW PO SCH (07:46)
[2019-01-21] MEDS: Chlorhexidine Rinse 15 ML MOUTHWASH MM SCH (07:46)
[2019-01-21] MEDS: cloNIDine HCl 0.1 MG TABLET PO SCH ×2 (07:46→20:25)
[2019-01-21] MEDS: Gabapentin 300 MG CAPSULE PO SCH ×3 (07:47→20:25)
[2019-01-21] MEDS: Pantoprazole 40 MG VIAL IVP SCH (07:47)
[2019-01-21] MEDS ORDERED: Furosemide 20 MG/2 ML VIAL IVP ONE (08:45)
[2019-01-21] MEDS ORDERED: Dexmedetomidine HCl 400 MCG/100 ML MLS IVC SCH (09:15)
[2019-01-21] MEDS ORDERED: Insulin DETEMIR 100 UNIT/ML X5UNITS SQ SCH (10:38)
[2019-01-21] MEDS ORDERED: amLODIPine 5 MG TABLET PO SCH (11:45)
[2019-01-21 18:32] LABS: Hematocrit 35.2 % (37.5-50.1); Hemoglobin 11.7 g/dL (12.9-16.9)
[2019-01-21] MEDS ORDERED: *HR* Dextrose 50 % in Water (Syg) 50 ML SYRINGE IVP PRN (18:35)
[2019-01-21] MEDS ORDERED: Naloxone 0.4 MG/ML INJ IVP PRN (18:35)
[2019-01-21] MEDS ORDERED: D5% in Water 1,000 ML IVC PRN (18:35)
[2019-01-21] MEDS ORDERED: Dextrose Gel 15 GM/37.5 ML TUBE PO PRN ×2 (18:35)
[2019-01-21] MEDS ORDERED: Albuterol 2.5 MG/3 ML NEBULIZER IH PRN (18:35)
[2019-01-21] MEDS ORDERED: *HR* HYDROcodone/Acet 5/325 mg TABLET PO ONE (19:03)
[2019-01-21] MEDS ORDERED: Ketorolac 15 MG/ML VIAL IVP ONE (23:01)
[2019-01-22] MEDS ORDERED: Insulin LISPRO 300 UNITS/3 ML VIAL SQ SCH ×2
[2019-01-22 04:17] LABS: Basophils % 0.1 %; Hematocrit 29.2 % (37.5-50.1); Immature Granulocytes % 0.5 % (0-4); Lymphocytes # 0.8 K/mcL (0.6-4.6); Lymphocytes % 6.9 %; Mean Corpuscular HGB Conc 33.6 g/dL (31.6-35.5); Mean Corpuscular Hemoglobin 29.6 pg (28.0-33.3); Mean Corpuscular Volume 88.2 fL (83.0-100.0); Mean Platelet Volume 11.5 fL (9.4-12.4); Monocytes # 0.8 K/mcL (0.0-1.3); Monocytes % 6.7 %; Neutrophils # 9.6 K/mcL (1.6-8.9); Platelet Count 183 K/mcL (140-400); Red Blood Count 3.31 M/mcL (4.19-5.50); Red Cell Distribution Width 13.9 % (11.5-14.5); Segmented Neutrophils % 85.8 %; White Blood Count 11.2 K/mcL (4.3-11.1)
[2019-01-22 04:25] LABS: Hemoglobin 9.8 g/dL (12.9-16.9)
[2019-01-22 04:37] LABS: BUN/Creatinine Ratio 29 (6-26); Blood Urea Nitrogen 39 mg/dL (8-23); Calcium 8.8 mg/dL (8.6-10.3); Carbon Dioxide 25 mEq/L (23-29); Chloride 101 mEq/L (98-107); Glucose 224 mg/dL (70-105); Magnesium 1.9 mg/dL (1.6-2.6); Osmolality,Calculated 302 (280-300); Potassium 3.9 mEq/L (3.5-5.1); Sodium 138 mEq/L (136-145); eGFR For African Americans > 60 (> 60); eGFR For Non-African Americans 52 (> 60)
[2019-01-22] MEDS: Ipratropium/Albuterol Neb 3 ML IH SCH ×4 (04:39→22:04)
[2019-01-22] MEDS: *HR* Heparin 5,000 UNIT/ML VIAL SQ SCH (05:17)
[2019-01-22] MEDS: Insulin LISPRO 300 UNITS/3 ML VIAL SQ SCH ×4 (08:22→20:42)
[2019-01-22] MEDS: cloNIDine HCl 0.1 MG TABLET PO SCH ×2 (08:24→20:41)
[2019-01-22] MEDS: Aspirin 81 MG TAB.CHEW PO SCH (08:24)
[2019-01-22] MEDS: Isosorbide MONOnitrate (24 HR) 30 MG TAB.ER.24H PO SCH (08:25)
[2019-01-22] MEDS: amLODIPine 5 MG TABLET PO SCH (08:25)
[2019-01-22] MEDS: Gabapentin 300 MG CAPSULE PO SCH ×3 (08:25→20:41)
[2019-01-22] MEDS ORDERED: Insulin DETEMIR 100 UNIT/ML X5UNITS SQ SCH (09:00)
[2019-01-22] MEDS ORDERED: Pantoprazole 40 MG VIAL IVP SCH (09:00)
[2019-01-22 13:17] LABS: Hemoglobin 9.2 g/dL (12.9-16.9)
[2019-01-22] MEDS: *HR* OxyCODONE/APAP 5/325 TABLET PO PRN ×2 (17:00→23:50)
[2019-01-22] MEDS: Pantoprazole 40 MG VIAL IVP SCH (20:41)
[2019-01-22] MEDS: Insulin DETEMIR 100 UNIT/ML X5UNITS SQ SCH (20:46)
[2019-01-22 21:23] LABS: Hematocrit 27.4 % (37.5-50.1); Hemoglobin 9.2 g/dL (12.9-16.9)
[2019-01-23] MEDS: Ipratropium/Albuterol Neb 3 ML IH SCH ×4 (04:05→23:51)
[2019-01-23 04:43] LABS: Hemoglobin 9.2 g/dL (12.9-16.9); Mean Corpuscular HGB Conc 32.9 g/dL (31.6-35.5); Mean Corpuscular Hemoglobin 28.9 pg (28.0-33.3); Mean Corpuscular Volume 88.1 fL (83.0-100.0); Mean Platelet Volume 11.7 fL (9.4-12.4); Platelet Count 160 K/mcL (140-400); Red Blood Count 3.18 M/mcL (4.19-5.50); Red Cell Distribution Width 13.8 % (11.5-14.5); White Blood Count 7.7 K/mcL (4.3-11.1)
[2019-01-23 04:57] LABS: BUN/Creatinine Ratio 25 (6-26); Blood Urea Nitrogen 29 mg/dL (8-23); Calcium 8.6 mg/dL (8.6-10.3); Carbon Dioxide 30 mEq/L (23-29); Chloride 103 mEq/L (98-107); Glucose 163 mg/dL (70-105); Osmolality,Calculated 295 (280-300); Sodium 138 mEq/L (136-145); eGFR For African Americans > 60 (> 60); eGFR For Non-African Americans > 60 (> 60)
[2019-01-23] MEDS: Pantoprazole 40 MG VIAL IVP SCH ×2 (05:55→17:12)
[2019-01-23] MEDS: *HR* OxyCODONE/APAP 5/325 TABLET PO PRN ×2 (05:55→17:12)
[2019-01-23] MEDS: Insulin LISPRO 300 UNITS/3 ML VIAL SQ SCH ×4 (07:38→22:24)
[2019-01-23] MEDS: cloNIDine HCl 0.1 MG TABLET PO SCH ×2 (08:21→22:23)
[2019-01-23] MEDS: Isosorbide MONOnitrate (24 HR) 30 MG TAB.ER.24H PO SCH (08:21)
[2019-01-23] MEDS: Aspirin 81 MG TAB.CHEW PO SCH (08:21)
[2019-01-23] MEDS: amLODIPine 5 MG TABLET PO SCH (08:22)
[2019-01-23] MEDS: Gabapentin 300 MG CAPSULE PO SCH ×3 (08:22→22:22)
[2019-01-23] MEDS: Lisinopril 20 MG TABLET PO SCH (12:15)
[2019-01-23] MEDS: Insulin DETEMIR 100 UNIT/ML X5UNITS SQ SCH (22:24)
[2019-01-24] MEDS: *HR* OxyCODONE/APAP 5/325 TABLET PO PRN ×4 (00:08→20:08)
[2019-01-24 02:28] LABS: Basophils % 0.1 %; Eosinophils # 0.1 K/mcL (0.0-0.6); Hematocrit 30.2 % (37.5-50.1); Hemoglobin 10.1 g/dL (12.9-16.9); Immature Granulocytes % 0.2 % (0-4); Lymphocytes # 1.3 K/mcL (0.6-4.6); Lymphocytes % 15.9 %; Mean Corpuscular HGB Conc 33.4 g/dL (31.6-35.5); Mean Corpuscular Hemoglobin 28.9 pg (28.0-33.3); Mean Corpuscular Volume 86.3 fL (83.0-100.0); Mean Platelet Volume 10.7 fL (9.4-12.4); Monocytes # 0.7 K/mcL (0.0-1.3); Monocytes % 8.6 %; Neutrophils # 6.1 K/mcL (1.6-8.9); Platelet Count 170 K/mcL (140-400); Red Cell Distribution Width 13.3 % (11.5-14.5); Segmented Neutrophils % 74.2 %; White Blood Count 8.2 K/mcL (4.3-11.1)
[2019-01-24 02:35] LABS: INR 1.1
[2019-01-24 02:44] LABS: BUN/Creatinine Ratio 24 (6-26); Blood Urea Nitrogen 24 mg/dL (8-23); Calcium 8.8 mg/dL (8.6-10.3); Carbon Dioxide 30 mEq/L (23-29); Chloride 103 mEq/L (98-107); Glucose 150 mg/dL (70-105); Osmolality,Calculated 291 (280-300); Potassium 4.1 mEq/L (3.5-5.1); Sodium 137 mEq/L (136-145); eGFR For African Americans > 60 (> 60); eGFR For Non-African Americans > 60 (> 60)
[2019-01-24] MEDS: Ipratropium/Albuterol Neb 3 ML IH SCH ×4 (04:50→22:50)
[2019-01-24] MEDS: Pantoprazole 40 MG VIAL IVP SCH ×2 (06:03→17:58)
[2019-01-24] MEDS: cloNIDine HCl 0.1 MG TABLET PO SCH ×2 (08:48→20:09)
[2019-01-24] MEDS: Gabapentin 400 MG CAPSULE PO SCH ×3 (08:50→20:09)
[2019-01-24] MEDS: Lisinopril 20 MG TABLET PO SCH (08:51)
[2019-01-24] MEDS: Aspirin 81 MG TAB.CHEW PO SCH (08:51)
[2019-01-24] MEDS: Isosorbide MONOnitrate (24 HR) 30 MG TAB.ER.24H PO SCH (08:52)
[2019-01-24] MEDS: amLODIPine 5 MG TABLET PO SCH (08:52)
[2019-01-24] MEDS: Insulin LISPRO 300 UNITS/3 ML VIAL SQ SCH ×4 (09:01→20:06)
[2019-01-24] MEDS: Furosemide 20 MG TABLET PO SCH (13:09)
[2019-01-24] MEDS ORDERED: Insulin DETEMIR 100 UNIT/ML X5UNITS SQ SCH (21:00)
[2019-01-25 02:19] LABS: Hematocrit 30.6 % (37.5-50.1); Hemoglobin 10.4 g/dL (12.9-16.9); Mean Corpuscular Hemoglobin 29.9 pg (28.0-33.3); Mean Corpuscular Volume 87.9 fL (83.0-100.0); Mean Platelet Volume 10.3 fL (9.4-12.4); Platelet Count 172 K/mcL (140-400); Red Blood Count 3.48 M/mcL (4.19-5.50); Red Cell Distribution Width 13.3 % (11.5-14.5); White Blood Count 6.7 K/mcL (4.3-11.1)
[2019-01-25] MEDS: *HR* OxyCODONE/APAP 5/325 TABLET PO PRN ×2 (02:30→09:05)
[2019-01-25 02:38] LABS: BUN/Creatinine Ratio 20 (6-26); Blood Urea Nitrogen 24 mg/dL (8-23); Calcium 8.8 mg/dL (8.6-10.3); Carbon Dioxide 30 mEq/L (23-29); Chloride 101 mEq/L (98-107); Glucose 197 mg/dL (70-105); Osmolality,Calculated 294 (280-300); Sodium 137 mEq/L (136-145); eGFR For African Americans > 60 (> 60); eGFR For Non-African Americans 59 (> 60)
[2019-01-25] MEDS: Ipratropium/Albuterol Neb 3 ML IH SCH ×2 (03:55→10:59)
[2019-01-25] MEDS: Pantoprazole 40 MG VIAL IVP SCH (05:58)
[2019-01-25 07:24] VITALS: BP 151/87
[2019-01-25] MEDS: amLODIPine 5 MG TABLET PO SCH (09:06)
[2019-01-25] MEDS: cloNIDine HCl 0.1 MG TABLET PO SCH (09:06)
[2019-01-25] MEDS: Aspirin 81 MG TAB.CHEW PO SCH (09:06)
[2019-01-25] MEDS: Gabapentin 400 MG CAPSULE PO SCH (09:06)
[2019-01-25] MEDS: Insulin LISPRO 300 UNITS/3 ML VIAL SQ SCH (09:07)
[2019-01-25] MEDS: Furosemide 20 MG TABLET PO SCH (09:07)
[2019-01-25] MEDS: Isosorbide MONOnitrate (24 HR) 30 MG TAB.ER.24H PO SCH (09:07)
[2019-01-25] MEDS: Lisinopril 20 MG TABLET PO SCH (09:07)
== END 2019-01-25 12:37 | disposition home or self-care (01) | DRG 208 ==
LOC: EMEROOARM 05:54 → ICNU 07:51 → SUATTDRO 07:51 → ICNU 08:50 → 2NENU 01-21 22:00
PROVIDERS: ADMIT Internal Medicine; ATTEND Internal Medicine

== ENCOUNTER 2021-08-27 08:37 | Inpatient (IN) ==
[2021-08-27 09:05] LABS: Basophils # 0.1 K/mcL (0.0-0.2); Basophils % 0.7 %; Eosinophils # 0.2 K/mcL (0.0-0.6); Eosinophils % 2.4 %; Hemoglobin 11.2 g/dL (12.9-16.9); Immature Granulocytes % 0.1 % (0-4); Lymphocytes % 14.2 %; Mean Corpuscular HGB Conc 31.1 g/dL (31.6-35.5); Mean Corpuscular Hemoglobin 28.2 pg (28.0-33.3); Mean Corpuscular Volume 90.7 fL (83.0-100.0); Mean Platelet Volume 10.8 fL (9.4-12.4); Monocytes # 0.6 K/mcL (0.0-1.3); Monocytes % 8.2 %; Platelet Count 184 K/mcL (140-400); Red Blood Count 3.97 M/mcL (4.19-5.50); Red Cell Distribution Width 15.4 % (11.5-14.5); Segmented Neutrophils % 74.4 %; White Blood Count 6.7 K/mcL (4.3-11.1)
[2021-08-27 09:27] LABS: BUN/Creatinine Ratio 16 (6-26); Blood Urea Nitrogen 21 mg/dL (8-23); Calcium 8.6 mg/dL (8.6-10.3); Carbon Dioxide 27 mEq/L (23-29); Chloride 107 mEq/L (98-107); Glucose 149 mg/dL (70-105); Osmolality,Calculated 292 (280-300); Potassium 4.8 mEq/L (3.5-5.1); Sodium 138 mEq/L (136-145); eGFR For African Americans > 60 (> 60); eGFR For Non-African Americans 54 (> 60)
[2021-08-27 09:36] LABS: Troponin I 0.05 ng/mL (< 0.04)
[2021-08-27] MEDS ORDERED: Furosemide 40 MG/4 ML VIAL IVP ONE (10:04)
[2021-08-27 10:07] LABS: Bilirubin,Urine Negative (Negative); Blood,Urine Negative (Negative); Clarity,Urine Clear (Clear); Color,Urine Light-Yellow (Yellow); Glucose,Urine (UA) 50 mg/dL (Normal); Hyaline Casts,Urine Few per lpf (None Seen); Ketones,Urine Negative (Negative); Leukocyte Esterase,Urine Negative (Negative); Mucus,Urine Few per lpf (None-Few); Nitrite,Urine Negative (Negative); PH,Urine 5.5 pH Units (5.0-8.0); Protein,Urine 70 mg/dL (Neg-Trace); Specific Gravity,Urine 1.023 (1.010-1.025); Urobilinogen,Urine Normal (Normal); WBC,Urine 0-3 per hpf (0-3)
[2021-08-27] MEDS ORDERED: Naloxone 0.4 MG/ML INJ IVP PRN (10:17)
[2021-08-27] MEDS ORDERED: Perflutren Lipid Microsphere 1.3 ML in 0.9 % Sodium Chloride 8.7 ML IVP PRN (11:45)
[2021-08-27] MEDS ORDERED: Dextrose 4 GM Chewable Tablets PO PRN ×2 (14:17)
[2021-08-27] MEDS ORDERED: *HR* Dextrose 50 % in Water (Syg) 50 ML SYRINGE IVP PRN (14:17)
[2021-08-27] MEDS ORDERED: D5% in Water 1,000 ML IVC PRN (14:17)
[2021-08-27 16:43] LABS: Estimated Average Glucose 146 mg/dl; Hemoglobin A1C 6.7 %
[2021-08-27] MEDS: Gabapentin 400 MG CAPSULE PO SCH ×2 (16:54→21:09)
[2021-08-27] MEDS: Furosemide 40 MG/4 ML VIAL IVP SCH (16:55)
[2021-08-27] MEDS: carvediloL 25 MG TABLET PO SCH (16:55)
[2021-08-27] MEDS: Insulin LISPRO 300 UNITS/3 ML VIAL SUBQ SCH (16:55)
[2021-08-27] MEDS: cloNIDine HCL 0.1 MG TABLET PO SCH (21:09)
[2021-08-27] MEDS: Insulin DETEMIR 100 UNIT/ML X5UNITS SUBQ SCH (21:11)
[2021-08-28 05:49] LABS: Basophils % 0.6 %; Eosinophils # 0.3 K/mcL (0.0-0.6); Eosinophils % 4.2 %; Hematocrit 34.4 % (37.5-50.1); Hemoglobin 10.9 g/dL (12.9-16.9); Immature Granulocytes % 0.3 % (0-4); Lymphocytes # 1.4 K/mcL (0.6-4.6); Lymphocytes % 21.1 %; Mean Corpuscular HGB Conc 31.7 g/dL (31.6-35.5); Mean Corpuscular Hemoglobin 27.8 pg (28.0-33.3); Mean Corpuscular Volume 87.8 fL (83.0-100.0); Mean Platelet Volume 10.3 fL (9.4-12.4); Monocytes # 0.6 K/mcL (0.0-1.3); Monocytes % 9.1 %; Neutrophils # 4.1 K/mcL (1.6-8.9); Platelet Count 179 K/mcL (140-400); Red Blood Count 3.92 M/mcL (4.19-5.50); Red Cell Distribution Width 15.4 % (11.5-14.5); Segmented Neutrophils % 64.7 %; White Blood Count 6.4 K/mcL (4.3-11.1)
[2021-08-28 06:07] LABS: BUN/Creatinine Ratio 18 (6-26); Blood Urea Nitrogen 22 mg/dL (8-23); Calcium 8.4 mg/dL (8.6-10.3); Carbon Dioxide 30 mEq/L (23-29); Chloride 107 mEq/L (98-107); Glucose 74 mg/dL (70-105); Osmolality,Calculated 292 (280-300); Potassium 4.1 mEq/L (3.5-5.1); Sodium 140 mEq/L (136-145); eGFR For African Americans > 60 (> 60); eGFR For Non-African Americans 60 (> 60)
[2021-08-28] MEDS: *HR* Enoxaparin 40 MG/0.4 ML SYRINGE SQ SCH (06:32)
[2021-08-28] MEDS: Insulin LISPRO 300 UNITS/3 ML VIAL SUBQ SCH ×3 (07:32→18:13)
[2021-08-28] MEDS: carvediloL 25 MG TABLET PO SCH ×2 (09:30→18:13)
[2021-08-28] MEDS: Aspirin 81 MG TAB.CHEW PO SCH (09:32)
[2021-08-28] MEDS: Gabapentin 400 MG CAPSULE PO SCH ×3 (09:33→20:32)
[2021-08-28] MEDS: cloNIDine HCL 0.1 MG TABLET PO SCH ×2 (09:33→20:22)
[2021-08-28] MEDS: lisinopriL 20 MG TABLET PO SCH (09:33)
[2021-08-28] MEDS: Furosemide 40 MG/4 ML VIAL IVP SCH ×2 (09:35→18:13)
[2021-08-28] MEDS: Insulin DETEMIR 100 UNIT/ML X5UNITS SUBQ SCH (20:36)
[2021-08-29] MEDS: *HR* Enoxaparin 40 MG/0.4 ML SYRINGE SQ SCH (06:29)
[2021-08-29] MEDS: Insulin LISPRO 300 UNITS/3 ML VIAL SUBQ SCH ×3 (07:29→16:52)
[2021-08-29] MEDS: Aspirin 81 MG TAB.CHEW PO SCH (07:38)
[2021-08-29] MEDS: Furosemide 40 MG/4 ML VIAL IVP SCH (07:38)
[2021-08-29] MEDS: lisinopriL 20 MG TABLET PO SCH (07:38)
[2021-08-29] MEDS: carvediloL 25 MG TABLET PO SCH ×2 (07:38→16:58)
[2021-08-29] MEDS: cloNIDine HCL 0.1 MG TABLET PO SCH ×2 (07:38→20:11)
[2021-08-29] MEDS: Gabapentin 400 MG CAPSULE PO SCH ×3 (07:39→20:11)
[2021-08-29] MEDS: Multivit/Ca/Min/Fe/FA 1 TAB TABLET PO SCH (10:24)
[2021-08-29] MEDS: Insulin DETEMIR 100 UNIT/ML X5UNITS SUBQ SCH (20:13)
[2021-08-30] MEDS: *HR* Enoxaparin 40 MG/0.4 ML SYRINGE SQ SCH (06:26)
[2021-08-30] MEDS: Insulin LISPRO 300 UNITS/3 ML VIAL SUBQ SCH ×3 (08:04→16:45)
[2021-08-30] MEDS: carvediloL 25 MG TABLET PO SCH ×2 (08:21→16:48)
[2021-08-30] MEDS: lisinopriL 20 MG TABLET PO SCH (08:21)
[2021-08-30] MEDS: cloNIDine HCL 0.1 MG TABLET PO SCH ×2 (08:21→20:15)
[2021-08-30] MEDS: Multivit/Ca/Min/Fe/FA 1 TAB TABLET PO SCH (08:21)
[2021-08-30] MEDS: Aspirin 81 MG TAB.CHEW PO SCH (08:21)
[2021-08-30] MEDS: Gabapentin 400 MG CAPSULE PO SCH ×3 (08:21→20:15)
[2021-08-30] MEDS ORDERED: Furosemide 20 MG TABLET PO SCH (09:00)
[2021-08-30] MEDS ORDERED: Furosemide 20 MG/2 ML VIAL IVP ONE (18:00)
[2021-08-30] MEDS: Furosemide 20 MG TABLET PO SCH (20:16)
[2021-08-30] MEDS: Insulin DETEMIR 100 UNIT/ML X5UNITS SUBQ SCH (20:17)
[2021-08-31 01:36] LABS: Basophils % 0.7 %; Eosinophils # 0.2 K/mcL (0.0-0.6); Eosinophils % 3.2 %; Hematocrit 32.6 % (37.5-50.1); Hemoglobin 10.1 g/dL (12.9-16.9); Immature Granulocytes % 0.3 % (0-4); Lymphocytes % 17.3 %; Mean Corpuscular Hemoglobin 27.5 pg (28.0-33.3); Mean Corpuscular Volume 88.8 fL (83.0-100.0); Mean Platelet Volume 11.4 fL (9.4-12.4); Monocytes # 0.5 K/mcL (0.0-1.3); Neutrophils # 4.2 K/mcL (1.6-8.9); Platelet Count 165 K/mcL (140-400); Red Blood Count 3.67 M/mcL (4.19-5.50); Red Cell Distribution Width 15.4 % (11.5-14.5); Segmented Neutrophils % 70.5 %
[2021-08-31 01:59] LABS: Alanine Aminotransferase 17 Units/L (7-52); Albumin/Globulin Ratio 1.1 (1.1-2.2); Alkaline Phosphatase 104 Units/L (34-104); Aspartate Amino Transferase 14 Units/L (13-39); BUN/Creatinine Ratio 24 (6-26); Bilirubin,Total 0.3 mg/dL (0.3-1.0); Blood Urea Nitrogen 29 mg/dL (8-23); Calcium 8.1 mg/dL (8.6-10.3); Carbon Dioxide 27 mEq/L (23-29); Chloride 104 mEq/L (98-107); Globulin 2.7 g/dL (2.4-3.5); Glucose 241 mg/dL (70-105); Osmolality,Calculated 298 (280-300); Potassium 4.1 mEq/L (3.5-5.1); Sodium 137 mEq/L (136-145); Total Protein 5.7 g/dL (6.4-8.9); eGFR For African Americans > 60 (> 60); eGFR For Non-African Americans 59 (> 60)
[2021-08-31] MEDS: *HR* Enoxaparin 40 MG/0.4 ML SYRINGE SQ SCH (06:34)
[2021-08-31] MEDS: Insulin LISPRO 300 UNITS/3 ML VIAL SUBQ SCH ×3 (07:30→16:29)
[2021-08-31] MEDS: Multivit/Ca/Min/Fe/FA 1 TAB TABLET PO SCH (08:07)
[2021-08-31] MEDS: Aspirin 81 MG TAB.CHEW PO SCH (08:07)
[2021-08-31] MEDS: lisinopriL 20 MG TABLET PO SCH (08:07)
[2021-08-31] MEDS: Furosemide 20 MG TABLET PO SCH ×2 (08:07→20:38)
[2021-08-31] MEDS: carvediloL 25 MG TABLET PO SCH ×2 (08:07→16:29)
[2021-08-31] MEDS: Gabapentin 400 MG CAPSULE PO SCH ×3 (08:07→20:38)
[2021-08-31] MEDS: cloNIDine HCL 0.1 MG TABLET PO SCH ×2 (08:07→20:38)
[2021-08-31] MEDS: Insulin DETEMIR 100 UNIT/ML X5UNITS SUBQ SCH (20:42)
[2021-08-31] MEDS ORDERED: Levalbuterol Neb 1.25 MG/3 ML ONE (23:35)
[2021-08-31] MEDS ORDERED: Acetaminophen 325 MG TABLET PO ONE (23:39)
[2021-09-01] MEDS: Levalbuterol Neb 1.25 MG/3 ML IH SCH ×6 (03:25→23:34)
[2021-09-01] MEDS: *HR* Enoxaparin 40 MG/0.4 ML SYRINGE SQ SCH (06:42)
[2021-09-01] MEDS: carvediloL 25 MG TABLET PO SCH ×2 (08:15→16:05)
[2021-09-01] MEDS: Gabapentin 400 MG CAPSULE PO SCH ×3 (08:15→21:51)
[2021-09-01] MEDS: Multivit/Ca/Min/Fe/FA 1 TAB TABLET PO SCH (08:15)
[2021-09-01] MEDS: lisinopriL 20 MG TABLET PO SCH (08:15)
[2021-09-01] MEDS: Aspirin 81 MG TAB.CHEW PO SCH (08:15)
[2021-09-01] MEDS: cloNIDine HCL 0.1 MG TABLET PO SCH ×2 (08:15→21:51)
[2021-09-01] MEDS: Furosemide 20 MG TABLET PO SCH ×2 (08:15→16:05)
[2021-09-01] MEDS: Insulin LISPRO 300 UNITS/3 ML VIAL SUBQ SCH ×3 (08:21→16:45)
[2021-09-01 08:32] LABS: INR 1.2; Prothrombin Time 13.5 Seconds (9.4-12.1)
[2021-09-01 15:56] LABS: Lactate Dehydrogenase 194 Units/L (140-271); Total Protein 6.2 g/dL (6.4-8.9)
[2021-09-01 16:54] LABS: RBC,Pleural Fluid 21000 RBC/mcL
[2021-09-01 17:08] LABS: Glucose,Pleural Fluid 166 mg/dL (No Ref Range); LDH,Pleural Fluid 51 Units/L (No Ref Range); Total Protein,Pleural Fluid < 2.0 g/dL
[2021-09-01 17:35] LABS: Appearance of Pleural Fl Cloudy (Clear)
[2021-09-01 17:38] LABS: Basophils,Pleural Fluid 0 %; Monocytes,Pleural Fluid 0 %
[2021-09-01] MEDS: Insulin DETEMIR 100 UNIT/ML X5UNITS SUBQ SCH (21:53)
[2021-09-01] MEDS ORDERED: Levalbuterol Neb 1.25 MG/3 ML IH SCH (23:30)
[2021-09-02] MEDS: Levalbuterol Neb 1.25 MG/3 ML IH SCH ×3 (03:30→11:22)
[2021-09-02] MEDS: *HR* Enoxaparin 40 MG/0.4 ML SYRINGE SQ SCH (06:26)
[2021-09-02] MEDS: carvediloL 25 MG TABLET PO SCH (07:47)
[2021-09-02] MEDS: cloNIDine HCL 0.1 MG TABLET PO SCH (07:48)
[2021-09-02] MEDS: lisinopriL 20 MG TABLET PO SCH (07:48)
[2021-09-02] MEDS: Multivit/Ca/Min/Fe/FA 1 TAB TABLET PO SCH (07:48)
[2021-09-02] MEDS: Furosemide 20 MG TABLET PO SCH (07:48)
[2021-09-02] MEDS: Gabapentin 400 MG CAPSULE PO SCH (07:48)
[2021-09-02] MEDS: Aspirin 81 MG TAB.CHEW PO SCH (07:49)
[2021-09-02] MEDS: Insulin LISPRO 300 UNITS/3 ML VIAL SUBQ SCH ×2 (07:49→12:40)
[2021-09-02 12:34] VITALS: BP 139/87; PULSE 88; TEMP 97.7; O2SAT 94
[2021-09-04 05:22] LABS: Fluid Source for Cholesterol PLEURAL FLUID
[2021-09-04 09:42] LABS: Cholesterol,Body Fluid 14 mg/dL
== END 2021-09-02 14:52 | disposition home or self-care (01) | DRG 280 ==
LOC: EMEROOARM 08:37 → 3BNU 08:37 → SUATTDRO 10:32 → 3BNU 11:24
PROVIDERS: ADMIT Student in an Organized Health Care Education/Training Program; ATTEND Nurse Practitioner

== ENCOUNTER 2021-10-28 17:11 | Inpatient (IN) ==
[2021-10-28] MEDS ORDERED: Furosemide 40 MG/4 ML VIAL IVP ONE (20:45)
[2021-10-28 21:10] LABS: Basophils % 0.7 %; Eosinophils # 0.2 K/mcL (0.0-0.6); Eosinophils % 3.5 %; Hematocrit 38.7 % (37.5-50.1); Hemoglobin 11.9 g/dL (12.9-16.9); Immature Granulocytes % 0.2 % (0-4); Lymphocytes # 0.9 K/mcL (0.6-4.6); Lymphocytes % 14.5 %; Mean Corpuscular HGB Conc 30.7 g/dL (31.6-35.5); Mean Corpuscular Hemoglobin 27.1 pg (28.0-33.3); Mean Corpuscular Volume 88.2 fL (83.0-100.0); Mean Platelet Volume 10.9 fL (9.4-12.4); Monocytes # 0.6 K/mcL (0.0-1.3); Monocytes % 9.7 %; Neutrophils # 4.4 K/mcL (1.6-8.9); Platelet Count 170 K/mcL (140-400); Red Blood Count 4.39 M/mcL (4.19-5.50); Red Cell Distribution Width 16.1 % (11.5-14.5); Segmented Neutrophils % 71.4 %; White Blood Count 6.1 K/mcL (4.3-11.1)
[2021-10-28 21:19] LABS: INR 1.4; Prothrombin Time 15.6 Seconds (9.4-12.1)
[2021-10-28 21:22] LABS: Activated Partial Thrombo Time 35.3 Seconds (26.0-36.0)
[2021-10-28 21:36] LABS: Albumin 3.7 g/dL (3.5-5.7); Albumin/Globulin Ratio 1.3 (1.1-2.2); Bilirubin,Direct 0.2 mg/dL (0.0-0.2); Bilirubin,Indirect 0.3 mg/dL (0.0-1.0); Bilirubin,Total 0.5 mg/dL (0.3-1.0); Calcium 8.9 mg/dL (8.6-10.3); Globulin 2.8 g/dL (2.4-3.5); Potassium 4.4 mEq/L (3.5-5.1); Total Protein 6.5 g/dL (6.4-8.9); Troponin I 0.08 ng/mL (< 0.04)
[2021-10-28 22:23] LABS: Bilirubin,Urine Negative (Negative); Blood,Urine Negative (Negative); Clarity,Urine Clear (Clear); Color,Urine Colorless (Yellow); Glucose,Urine (UA) Normal (Normal); Ketones,Urine Negative (Negative); Leukocyte Esterase,Urine Negative (Negative); Nitrite,Urine Negative (Negative); Protein,Urine Negative (Neg-Trace); Urobilinogen,Urine Normal (Normal)
[2021-10-29] MEDS ORDERED: *HR* Dextrose 50 % in Water (Syg) 50 ML SYRINGE IVP PRN (02:19)
[2021-10-29] MEDS ORDERED: D5% in Water 1,000 ML IVC PRN (02:19)
[2021-10-29] MEDS ORDERED: Dextrose Gel 15 GM/37.5 ML TUBE PO PRN ×2 (02:19)
[2021-10-29] MEDS ORDERED: Naloxone 0.4 MG/ML INJ IVP PRN (02:27)
[2021-10-29] MEDS ORDERED: Acetaminophen 325 MG TABLET PO PRN (02:27)
[2021-10-29 03:55] LABS: Hematocrit 36.5 % (37.5-50.1); Hemoglobin 11.2 g/dL (12.9-16.9); Mean Corpuscular HGB Conc 30.7 g/dL (31.6-35.5); Mean Corpuscular Hemoglobin 26.4 pg (28.0-33.3); Mean Corpuscular Volume 86.1 fL (83.0-100.0); Mean Platelet Volume 10.8 fL (9.4-12.4); Platelet Count 158 K/mcL (140-400); Red Blood Count 4.24 M/mcL (4.19-5.50); Red Cell Distribution Width 15.9 % (11.5-14.5); White Blood Count 5.1 K/mcL (4.3-11.1)
[2021-10-29 04:15] LABS: Calcium 8.5 mg/dL (8.6-10.3); Chol/HDL Ratio 2.8 (0-4.9); Magnesium 2.1 mg/dL (1.6-2.6); Potassium 4.3 mEq/L (3.5-5.1)
[2021-10-29 04:25] LABS: Thyroid Stimulating Hormone 1.579 mcIU/mL (0.340-5.600)
[2021-10-29 04:35] LABS: Estimated Average Glucose 137 mg/dl; Hemoglobin A1C 6.4 %
[2021-10-29 04:36] LABS: Folate 16.1 ng/mL (3.0-16.0)
[2021-10-29] MEDS ORDERED: *HR* Metoprolol 5 MG/5 ML VIAL IVP ONE (04:40)
[2021-10-29 04:44] LABS: Uric Acid 7.9 mg/dL (2.3-7.6)
[2021-10-29] MEDS: *HR* Heparin 5,000 UNIT/ML VIAL SQ SCH ×2 (05:57→17:35)
[2021-10-29] MEDS: Celecoxib 200 MG CAPSULE PO SCH (08:47)
[2021-10-29] MEDS: Insulin LISPRO 300 UNITS/3 ML VIAL SUBQ SCH ×4 (08:47→20:08)
[2021-10-29] MEDS: cloNIDine HCL 0.1 MG TABLET PO SCH ×2 (08:47→20:07)
[2021-10-29] MEDS: Gabapentin 400 MG CAPSULE PO SCH ×3 (08:47→20:07)
[2021-10-29] MEDS: Furosemide 20 MG/2 ML VIAL IVP SCH ×2 (08:48→20:22)
[2021-10-29] MEDS: carvediloL 25 MG TABLET PO SCH ×2 (08:48→17:35)
[2021-10-29] MEDS: allopurinoL 300 MG TABLET PO SCH (08:48)
[2021-10-29] MEDS ORDERED: lisinopriL 20 MG TABLET PO SCH (09:00)
[2021-10-29] MEDS: Albumin 25% 25gram/100mL 25 GM/100 ML IV.SOLN IVPB SCH ×2 (09:43→17:35)
[2021-10-29] MEDS ORDERED: Perflutren Lipid Microsphere 1.3 ML in 0.9 % Sodium Chloride 8.7 ML IVP PRN (10:58)
[2021-10-30] MEDS: Albumin 25% 25gram/100mL 25 GM/100 ML IV.SOLN IVPB SCH ×4 (00:03→23:58)
[2021-10-30 03:44] LABS: Basophils % 0.5 %; Eosinophils # 0.2 K/mcL (0.0-0.6); Eosinophils % 3.1 %; Hematocrit 32.7 % (37.5-50.1); Hemoglobin 10.1 g/dL (12.9-16.9); Immature Granulocytes % 0.2 % (0-4); Lymphocytes # 0.9 K/mcL (0.6-4.6); Lymphocytes % 16.8 %; Mean Corpuscular HGB Conc 30.9 g/dL (31.6-35.5); Mean Corpuscular Hemoglobin 26.6 pg (28.0-33.3); Mean Corpuscular Volume 86.3 fL (83.0-100.0); Mean Platelet Volume 10.7 fL (9.4-12.4); Monocytes # 0.6 K/mcL (0.0-1.3); Monocytes % 10.5 %; Neutrophils # 3.8 K/mcL (1.6-8.9); Platelet Count 151 K/mcL (140-400); Red Blood Count 3.79 M/mcL (4.19-5.50); Segmented Neutrophils % 68.9 %; White Blood Count 5.5 K/mcL (4.3-11.1)
[2021-10-30 03:58] LABS: Calcium 8.5 mg/dL (8.6-10.3); Phosphorous 3.8 mg/dL (2.7-4.5); Potassium 4.5 mEq/L (3.5-5.1)
[2021-10-30] MEDS: *HR* Heparin 5,000 UNIT/ML VIAL SQ SCH ×2 (05:34→18:58)
[2021-10-30] MEDS: Insulin LISPRO 300 UNITS/3 ML VIAL SUBQ SCH ×4 (07:18→19:59)
[2021-10-30] MEDS: cloNIDine HCL 0.1 MG TABLET PO SCH ×2 (08:13→20:07)
[2021-10-30] MEDS: Gabapentin 400 MG CAPSULE PO SCH (08:13)
[2021-10-30] MEDS: Celecoxib 200 MG CAPSULE PO SCH (08:13)
[2021-10-30] MEDS: allopurinoL 300 MG TABLET PO SCH (08:13)
[2021-10-30] MEDS: carvediloL 25 MG TABLET PO SCH ×2 (08:14→15:31)
[2021-10-30] MEDS: Furosemide 20 MG/2 ML VIAL IVP SCH (08:14)
[2021-10-30] MEDS: Iron Sucrose Complex 250 MG in 0.9 % Sodium Chloride 250 ML IVPB SCH (11:00)
[2021-10-30] MEDS: Aspirin 81 MG TAB.CHEW PO SCH (13:01)
[2021-10-30] MEDS: Gabapentin 300 MG CAPSULE PO SCH ×2 (15:31→20:07)
[2021-10-30] MEDS: Furosemide 40 MG/4 ML VIAL IVP SCH (18:52)
[2021-10-30] MEDS: hydrALAZINE 10 MG TABLET PO SCH ×2 (18:52→23:57)
[2021-10-31 02:19] LABS: Basophils % 0.5 %; Eosinophils # 0.1 K/mcL (0.0-0.6); Eosinophils % 2.2 %; Hematocrit 31.2 % (37.5-50.1); Hemoglobin 9.7 g/dL (12.9-16.9); Immature Granulocytes % 0.3 % (0-4); Lymphocytes # 0.8 K/mcL (0.6-4.6); Lymphocytes % 13.5 %; Mean Corpuscular HGB Conc 31.1 g/dL (31.6-35.5); Mean Corpuscular Hemoglobin 27.1 pg (28.0-33.3); Mean Corpuscular Volume 87.2 fL (83.0-100.0); Mean Platelet Volume 10.9 fL (9.4-12.4); Monocytes # 0.6 K/mcL (0.0-1.3); Monocytes % 9.5 %; Neutrophils # 4.3 K/mcL (1.6-8.9); Platelet Count 148 K/mcL (140-400); Red Blood Count 3.58 M/mcL (4.19-5.50); Red Cell Distribution Width 16.3 % (11.5-14.5); White Blood Count 5.8 K/mcL (4.3-11.1)
[2021-10-31 02:35] LABS: Calcium 8.6 mg/dL (8.6-10.3); Magnesium 1.9 mg/dL (1.6-2.6); Phosphorous 3.5 mg/dL (2.7-4.5); Potassium 4.1 mEq/L (3.5-5.1)
[2021-10-31] MEDS: *HR* Heparin 5,000 UNIT/ML VIAL SQ SCH ×2 (06:01→18:33)
[2021-10-31] MEDS: hydrALAZINE 10 MG TABLET PO SCH ×3 (06:01→18:32)
[2021-10-31] MEDS: Insulin LISPRO 300 UNITS/3 ML VIAL SUBQ SCH ×4 (07:48→22:18)
[2021-10-31] MEDS: Celecoxib 200 MG CAPSULE PO SCH (08:35)
[2021-10-31] MEDS: allopurinoL 300 MG TABLET PO SCH (08:35)
[2021-10-31] MEDS: cloNIDine HCL 0.1 MG TABLET PO SCH ×2 (08:36→20:37)
[2021-10-31] MEDS: carvediloL 25 MG TABLET PO SCH ×2 (08:36→16:50)
[2021-10-31] MEDS: Aspirin 81 MG TAB.CHEW PO SCH (08:36)
[2021-10-31] MEDS: Furosemide 40 MG/4 ML VIAL IVP SCH ×2 (08:38→20:40)
[2021-10-31] MEDS: Gabapentin 300 MG CAPSULE PO SCH ×3 (08:46→20:38)
[2021-10-31] MEDS: Iron Sucrose Complex 250 MG in 0.9 % Sodium Chloride 250 ML IVPB SCH (08:47)
[2021-11-01] MEDS: hydrALAZINE 10 MG TABLET PO SCH ×5 (00:55→23:09)
[2021-11-01 01:50] LABS: Basophils # 0.1 K/mcL (0.0-0.2); Basophils % 0.8 %; Eosinophils # 0.2 K/mcL (0.0-0.6); Eosinophils % 2.8 %; Hematocrit 33.4 % (37.5-50.1); Hemoglobin 10.2 g/dL (12.9-16.9); Immature Granulocytes % 0.3 % (0-4); Lymphocytes # 0.8 K/mcL (0.6-4.6); Lymphocytes % 13.1 %; Mean Corpuscular HGB Conc 30.5 g/dL (31.6-35.5); Mean Corpuscular Hemoglobin 26.7 pg (28.0-33.3); Mean Corpuscular Volume 87.4 fL (83.0-100.0); Mean Platelet Volume 10.1 fL (9.4-12.4); Monocytes # 0.5 K/mcL (0.0-1.3); Monocytes % 8.3 %; Neutrophils # 4.6 K/mcL (1.6-8.9); Platelet Count 149 K/mcL (140-400); Red Blood Count 3.82 M/mcL (4.19-5.50); Red Cell Distribution Width 16.5 % (11.5-14.5); Segmented Neutrophils % 74.7 %; White Blood Count 6.2 K/mcL (4.3-11.1)
[2021-11-01 02:04] LABS: Calcium 8.5 mg/dL (8.6-10.3); Magnesium 1.8 mg/dL (1.6-2.6); Phosphorous 3.1 mg/dL (2.7-4.5); Potassium 4.3 mEq/L (3.5-5.1)
[2021-11-01] MEDS: *HR* Heparin 5,000 UNIT/ML VIAL SQ SCH ×2 (05:35→18:05)
[2021-11-01] MEDS: Insulin LISPRO 300 UNITS/3 ML VIAL SUBQ SCH ×4 (07:06→20:03)
[2021-11-01] MEDS: Albumin 25% 25gram/100mL 25 GM/100 ML IV.SOLN IVPB SCH ×3 (09:26→23:09)
[2021-11-01] MEDS: carvediloL 25 MG TABLET PO SCH ×2 (09:29→18:03)
[2021-11-01] MEDS: Aspirin 81 MG TAB.CHEW PO SCH (09:30)
[2021-11-01] MEDS: allopurinoL 300 MG TABLET PO SCH (09:30)
[2021-11-01] MEDS: cloNIDine HCL 0.1 MG TABLET PO SCH ×2 (09:30→20:02)
[2021-11-01] MEDS: Celecoxib 200 MG CAPSULE PO SCH (09:30)
[2021-11-01] MEDS: Gabapentin 300 MG CAPSULE PO SCH ×3 (09:30→20:03)
[2021-11-01] MEDS: Iron Sucrose Complex 250 MG in 0.9 % Sodium Chloride 250 ML IVPB SCH (10:51)
[2021-11-01] MEDS: Furosemide 40 MG/4 ML VIAL IVP SCH ×3 (10:57→18:05)
[2021-11-02] MEDS ORDERED: Furosemide 40 MG/4 ML VIAL IVP ONE (00:30)
[2021-11-02 03:17] LABS: Calcium 8.9 mg/dL (8.6-10.3); Magnesium 1.9 mg/dL (1.6-2.6); Phosphorous 3.3 mg/dL (2.7-4.5); Potassium 4.1 mEq/L (3.5-5.1)
[2021-11-02] MEDS: *HR* Heparin 5,000 UNIT/ML VIAL SQ SCH ×2 (05:33→17:14)
[2021-11-02] MEDS: hydrALAZINE 10 MG TABLET PO SCH ×3 (05:33→17:15)
[2021-11-02] MEDS: carvediloL 25 MG TABLET PO SCH ×2 (08:01→17:15)
[2021-11-02] MEDS: Aspirin 81 MG TAB.CHEW PO SCH (08:01)
[2021-11-02] MEDS: Celecoxib 200 MG CAPSULE PO SCH (08:01)
[2021-11-02] MEDS: cloNIDine HCL 0.1 MG TABLET PO SCH ×2 (08:02→21:51)
[2021-11-02] MEDS: allopurinoL 300 MG TABLET PO SCH (08:02)
[2021-11-02] MEDS: Gabapentin 300 MG CAPSULE PO SCH ×3 (08:02→21:51)
[2021-11-02] MEDS: Furosemide 40 MG/4 ML VIAL IVP SCH ×2 (08:29→21:51)
[2021-11-02] MEDS: Insulin LISPRO 300 UNITS/3 ML VIAL SUBQ SCH ×4 (08:55→21:09)
[2021-11-02] MEDS: Iron Sucrose Complex 250 MG in 0.9 % Sodium Chloride 250 ML IVPB SCH (09:31)
[2021-11-03] MEDS: hydrALAZINE 10 MG TABLET PO SCH ×4 (00:03→17:26)
[2021-11-03 02:56] LABS: Basophils % 0.4 %; Eosinophils # 0.2 K/mcL (0.0-0.6); Eosinophils % 3.3 %; Hematocrit 33.2 % (37.5-50.1); Hemoglobin 10.3 g/dL (12.9-16.9); Immature Granulocytes % 0.3 % (0-4); Lymphocytes # 0.9 K/mcL (0.6-4.6); Lymphocytes % 12.1 %; Mean Corpuscular Hemoglobin 26.8 pg (28.0-33.3); Mean Corpuscular Volume 86.5 fL (83.0-100.0); Mean Platelet Volume 10.4 fL (9.4-12.4); Monocytes # 0.5 K/mcL (0.0-1.3); Monocytes % 7.2 %; Neutrophils # 5.6 K/mcL (1.6-8.9); Platelet Count 156 K/mcL (140-400); Red Blood Count 3.84 M/mcL (4.19-5.50); Red Cell Distribution Width 16.4 % (11.5-14.5); Segmented Neutrophils % 76.7 %; White Blood Count 7.3 K/mcL (4.3-11.1)
[2021-11-03 03:16] LABS: Calcium 8.8 mg/dL (8.6-10.3); Potassium 4.3 mEq/L (3.5-5.1)
[2021-11-03 04:02] LABS: Protein/Creatinine Ratio,Urine 0.33 mg/mg (0.00-0.20); Sodium, Urine 112.7 mEq/L
[2021-11-03] MEDS: *HR* Heparin 5,000 UNIT/ML VIAL SQ SCH ×2 (05:41→17:25)
[2021-11-03] MEDS: carvediloL 25 MG TABLET PO SCH ×2 (08:06→17:26)
[2021-11-03] MEDS: Aspirin 81 MG TAB.CHEW PO SCH (08:06)
[2021-11-03] MEDS: Gabapentin 300 MG CAPSULE PO SCH ×3 (08:06→21:08)
[2021-11-03] MEDS: cloNIDine HCL 0.1 MG TABLET PO SCH ×2 (08:06→21:08)
[2021-11-03] MEDS: allopurinoL 300 MG TABLET PO SCH (08:07)
[2021-11-03] MEDS: Insulin LISPRO 300 UNITS/3 ML VIAL SUBQ SCH ×4 (08:12→21:09)
[2021-11-03] MEDS: Furosemide 40 MG/4 ML VIAL IVP SCH ×2 (08:24→21:07)
[2021-11-03] MEDS ORDERED: Albumin 25% 25gram/100mL 25 GM/100 ML IV.SOLN IVPB SCH (11:09)
[2021-11-03] MEDS: Albumin 25% 25gram/100mL 25 GM/100 ML IV.SOLN IVPB SCH ×2 (12:17→21:05)
[2021-11-04] MEDS: hydrALAZINE 10 MG TABLET PO SCH ×5 (00:16→23:48)
[2021-11-04] MEDS: Albumin 25% 25gram/100mL 25 GM/100 ML IV.SOLN IVPB SCH ×3 (05:15→20:11)
[2021-11-04] MEDS: *HR* Heparin 5,000 UNIT/ML VIAL SQ SCH ×2 (05:16→17:48)
[2021-11-04 07:22] LABS: Basophils % 0.5 %; Eosinophils # 0.2 K/mcL (0.0-0.6); Eosinophils % 3.8 %; Hematocrit 32.8 % (37.5-50.1); Immature Granulocytes % 0.2 % (0-4); Lymphocytes # 0.9 K/mcL (0.6-4.6); Lymphocytes % 16.3 %; Mean Corpuscular HGB Conc 30.5 g/dL (31.6-35.5); Mean Corpuscular Hemoglobin 26.2 pg (28.0-33.3); Mean Corpuscular Volume 86.1 fL (83.0-100.0); Mean Platelet Volume 10.7 fL (9.4-12.4); Monocytes # 0.5 K/mcL (0.0-1.3); Monocytes % 8.1 %; Neutrophils # 4.1 K/mcL (1.6-8.9); Platelet Count 149 K/mcL (140-400); Red Blood Count 3.81 M/mcL (4.19-5.50); Red Cell Distribution Width 16.4 % (11.5-14.5); Segmented Neutrophils % 71.1 %; White Blood Count 5.8 K/mcL (4.3-11.1)
[2021-11-04 07:39] LABS: Calcium 9.2 mg/dL (8.6-10.3)
[2021-11-04] MEDS: Insulin LISPRO 300 UNITS/3 ML VIAL SUBQ SCH ×4 (07:52→20:12)
[2021-11-04] MEDS: carvediloL 25 MG TABLET PO SCH ×2 (08:00→17:48)
[2021-11-04] MEDS: Furosemide 40 MG/4 ML VIAL IVP SCH ×2 (08:00→20:11)
[2021-11-04] MEDS: Aspirin 81 MG TAB.CHEW PO SCH (08:00)
[2021-11-04] MEDS: allopurinoL 300 MG TABLET PO SCH (08:00)
[2021-11-04] MEDS: cloNIDine HCL 0.1 MG TABLET PO SCH ×2 (08:00→20:10)
[2021-11-04] MEDS: Gabapentin 300 MG CAPSULE PO SCH ×3 (08:01→20:10)
[2021-11-04] MEDS ORDERED: Iopamidol - 370 500 ML MLS IVP ONE (10:58)
[2021-11-04] MEDS ORDERED: Iopamidol - 370 500 ML MLS PO ONE (14:08)
[2021-11-05] MEDS: hydrALAZINE 10 MG TABLET PO SCH ×4 (04:57→23:42)
[2021-11-05] MEDS: Albumin 25% 25gram/100mL 25 GM/100 ML IV.SOLN IVPB SCH ×3 (04:57→23:42)
[2021-11-05] MEDS: *HR* Heparin 5,000 UNIT/ML VIAL SQ SCH ×2 (04:57→17:29)
[2021-11-05 06:19] LABS: Basophils % 0.7 %; Eosinophils # 0.2 K/mcL (0.0-0.6); Eosinophils % 3.3 %; Hematocrit 32.5 % (37.5-50.1); Hemoglobin 10.1 g/dL (12.9-16.9); Immature Granulocytes % 0.2 % (0-4); Lymphocytes # 1.1 K/mcL (0.6-4.6); Lymphocytes % 18.6 %; Mean Corpuscular HGB Conc 31.1 g/dL (31.6-35.5); Mean Corpuscular Hemoglobin 26.8 pg (28.0-33.3); Mean Corpuscular Volume 86.2 fL (83.0-100.0); Mean Platelet Volume 10.8 fL (9.4-12.4); Monocytes # 0.5 K/mcL (0.0-1.3); Platelet Count 141 K/mcL (140-400); Red Blood Count 3.77 M/mcL (4.19-5.50); Red Cell Distribution Width 16.5 % (11.5-14.5); Segmented Neutrophils % 68.2 %; White Blood Count 5.8 K/mcL (4.3-11.1)
[2021-11-05 06:40] LABS: Calcium 9.3 mg/dL (8.6-10.3); Potassium 4.1 mEq/L (3.5-5.1)
[2021-11-05] MEDS: carvediloL 25 MG TABLET PO SCH ×2 (08:19→17:29)
[2021-11-05] MEDS: Gabapentin 300 MG CAPSULE PO SCH ×3 (08:20→20:55)
[2021-11-05] MEDS: allopurinoL 300 MG TABLET PO SCH (08:21)
[2021-11-05] MEDS: Aspirin 81 MG TAB.CHEW PO SCH (08:22)
[2021-11-05] MEDS: cloNIDine HCL 0.1 MG TABLET PO SCH ×2 (08:23→20:55)
[2021-11-05] MEDS: Insulin LISPRO 300 UNITS/3 ML VIAL SUBQ SCH ×4 (08:59→20:56)
[2021-11-05] MEDS: Furosemide 40 MG/4 ML VIAL IVP SCH ×2 (09:19→20:56)
[2021-11-05 17:47] LABS: Total Protein,Peritoneal Fluid 3.9 g/dL
[2021-11-05 18:06] LABS: RBC,Peritoneal Fluid < 2000 RBC/mcL
[2021-11-05 18:08] LABS: Appearance of Peritoneal Fl CLEAR (Clear)
[2021-11-05 20:14] LABS: Basophils,Peritoneal Fluid 0 %; Eosinophils,Peritoneal Fluid 0 %
[2021-11-06 03:43] LABS: Basophils % 0.6 %; Eosinophils # 0.2 K/mcL (0.0-0.6); Eosinophils % 3.7 %; Hematocrit 32.1 % (37.5-50.1); Hemoglobin 9.8 g/dL (12.9-16.9); Immature Granulocytes % 0.2 % (0-4); Lymphocytes # 0.9 K/mcL (0.6-4.6); Lymphocytes % 16.5 %; Mean Corpuscular HGB Conc 30.5 g/dL (31.6-35.5); Mean Corpuscular Hemoglobin 26.5 pg (28.0-33.3); Mean Corpuscular Volume 86.8 fL (83.0-100.0); Mean Platelet Volume 10.7 fL (9.4-12.4); Monocytes # 0.4 K/mcL (0.0-1.3); Monocytes % 7.7 %; Neutrophils # 3.9 K/mcL (1.6-8.9); Platelet Count 135 K/mcL (140-400); Red Cell Distribution Width 16.7 % (11.5-14.5); Segmented Neutrophils % 71.3 %; White Blood Count 5.5 K/mcL (4.3-11.1)
[2021-11-06 04:01] LABS: Calcium 9.3 mg/dL (8.6-10.3)
[2021-11-06] MEDS: *HR* Heparin 5,000 UNIT/ML VIAL SQ SCH (05:26)
[2021-11-06] MEDS: hydrALAZINE 10 MG TABLET PO SCH ×2 (05:26→11:22)
[2021-11-06] MEDS: Albumin 25% 25gram/100mL 25 GM/100 ML IV.SOLN IVPB SCH (09:49)
[2021-11-06] MEDS: allopurinoL 300 MG TABLET PO SCH (09:50)
[2021-11-06] MEDS: Gabapentin 300 MG CAPSULE PO SCH (09:50)
[2021-11-06] MEDS: Aspirin 81 MG TAB.CHEW PO SCH (09:50)
[2021-11-06] MEDS: cloNIDine HCL 0.1 MG TABLET PO SCH (09:50)
[2021-11-06] MEDS: carvediloL 25 MG TABLET PO SCH (09:52)
[2021-11-06] MEDS: Insulin LISPRO 300 UNITS/3 ML VIAL SUBQ SCH ×2 (10:07→11:21)
[2021-11-06] MEDS: Furosemide 40 MG/4 ML VIAL IVP SCH (10:39)
[2021-11-06 11:04] VITALS: BP 146/79; PULSE 96; TEMP 98.1; O2SAT 92
[2021-11-06] MEDS ORDERED: Furosemide 40 MG TABLET PO SCH (17:00)
== END 2021-11-06 12:00 | disposition home health service (06) | DRG 291 ==
LOC: 3BNU 17:11 → EMEROOARM 17:11 → SUATTDRO 22:35 → 3BNU 22:55 → SUATTDRO 10-30 11:58
PROVIDERS: ADMIT Internal Medicine; ATTEND Nurse Practitioner